=== PATIENT | female | born 1955 | race Caucasian/White ===

== ENCOUNTER 2025-03-15 18:45 | Observation (INO) | payer MEDICARE, OTHER, SELFPAY ==
[2025-03-15] VITALS (9 sets, daily range): BP systolic 159–186; BP diastolic 77–110; BMI 28.6
--- NOTE | 2025-03-15 12:31 | ED.GENMED ---
History of Present Illness
General
Chief Complaint: Abdominal Symptoms
Source: patient
Exam Limitations: none
Time Seen by Provider: 03/15/25 11:48
Nursing documentation reviewed up to this point in time: agreed with
History of Present Illness
History of Present Illness:
70-year-old female with history of hypertension, hyperlipidemia, bipolar disorder, schizophrenia, here after her sister dropped her off to the ER because the patient does not have a place to live. Patient has been homeless for several years. She
lost her house years ago and has been bouncing around, occasionally staying with one of her sisters and most recently in the last month was at a extended stay hotel. Her money ran out so she is no longer able to stay there. Today after she was
evicted from the hotel her sister took her to [facility] because the patient claims she was told if she told them that she was homeless that they would give her a place to live. Patient
admitted to the staff there and that she was not suicidal and so they gave her outpatient resources and did not do a formal consultation. I spoke with the person friends to confirm this
Then the patient's sister dropped her off in the ER and apparently told this patient to tell us that she was suicidal and she had medical problems so that she could get a place to stay. Patient's sister is not here with her. Patient says that her
only medical complaint is constipation which is chronic. She thinks she has not had a bowel movement in 2 weeks. She is not taking anything [id number] right now but she had been previously taking MiraLAX
She has no abdominal pain and is able to eat close no vomiting, no fevers or chills.
Patient denies suicidal thoughts to me. She is depressed about not having a place to stay and does not feel like she can call her family.
Past History
Past History
ED Past Medical History: CVA (Previous TIAs), HTN, Hypercholesterolemia and Psychiatric (bipolar,. schizo, a/d)
ED Past Surgical History: Orthopedic (Shon hip replacements, Spinal fusion, Left foot surgery, Left knee replacement) and Other (Abd Lipectomy)
Social History
Tobacco: Non-smoker
Alcohol: None
Personal:
Living: alone
Employment: Disabled
Family History
Family History: Other (Noncontributory)
Review of Systems
Review of Systems
Allergies reviewed?: Yes
All Other Systems: Not applicable
Phy Exam
Physical Exam
Physical Exam:
GENERAL: Alert , in no apparent distress
EYE: pupils equal and reactive
NECK: Supple
ENT: o/p clr, mmm.
CARDIAC: Regular rate and rhythm .
LUNGS: Clear breath sounds bilaterally, no acute respiratory distress, no wheezes/rales/rhonchi
ABDOMEN: Soft, soft, without focal tenderness, no r/g, no cvat, normal bowel sounds
NEUROLOGICAL: Alert and oriented, no focal neuro deficits
SKIN: Warm and dry, skin intact.
MUSCULOSKELETAL: No edema, well perfused. neg rolando's sign
PSYCH: Normal and appropriate interaction. flat affect
Course
Orders/Labs/Results
Orders:
Orders
03/15/25 Breakfast
Regular
At Your Request: Full Participation
03/15/25 11:51
Case Management Consult ONCE
Case Management Consult: Other
Requested By:: NURSING
Comment:
Obstruct Series W/PA Chest [CR Obstruct Series W/pa Chest] Urgent
Comment:
Reason For Exam: constipation
03/15/25 13:57
Magnesium Citrate [Citroma] 300 ml PO ONCE ONE
03/15/25 16:33
Physical Therapy Consult [Pt Eval And Treat] Urgent
Activity Level: Ambulate
03/15/25 16:35
Basic Metabolic Panel Urgent
Complete Blood Count/With Diff Urgent
03/15/25 17:10
NT-proBNP Urgent
03/15/25 18:28
Potassium Chloride 10% Elixir [KCl Elixir] 40 meq PO NOW STA
03/15/25 18:29
Admit/Transfer Patient As Directed
Co-Sign Provider:
Level of Care: Observation services
Assign to:: [facility]
Physician / Group: spencer
Diagnosis: homeless
03/15/25 18:30
Code Status As Directed
Resuscitation Status: Full Code
PRN Pain Medication Management As Directed
May give lesser potent ordered pain med per pt: Yes
preference::
Protocol:: Medication orders for pain may be administered in a
manner that supports deferring to patient preference
when the pt is:
- Requesting an ordered lesser potent pain medication.
Least to most potent pain medications are defined
as: acetaminophen < NSAID < tramadol < opioids
(morphine, oxycodone, hydromorphone).
- Requesting a lesser dose of the same medication IF
ORDERED.
- Requesting a less intrusive route of administration
if both routes are prescribed by the provider (PO <
IV).
03/15/25 20:00
Docusate Sodium [Colace] 100 mg PO BID
03/15/25 20:43
Acetaminophen [Tylenol] 650 mg PO Q4HPRN PRN
Bisacodyl [Dulcolax] 10 mg RECTAL [id number] PRN
Docusate Sodium [Colace] 100 mg PO BID
Docusate W/Senna [Senokot-S] 1 tablet PO BIDPRN PRN
Oxybutynin Chloride [Ditropan] 2.5 mg PO BID
Polyethylene Glycol Powder [Miralax] 17 grams PO DAILYPRN PRN
03/15/25 20:43
OID Social Work/Psychosocial Collet Gluer Consult Routine
Activity As Directed
Activity Level: As Tolerated
Vital Signs As Directed
Frequency: Per unit guidelines
DX Deep Vein Thrombosis Video Routine
03/15/25 22:00
Polyethylene Glycol Powder [Miralax] 17 grams PO HS
Sennosides [Senokot] 8.6 mg PO HS
Trazodone [Desyrel] 150 mg PO HS
03/16/25 08:00
ARIPiprazole [Abilify] 5 mg PO DAILY
Aspirin Chewable [Low Strength Aspirin] 81 mg PO DAILY
Atorvastatin [Lipitor] 40 mg PO DAILY
Bupropion(24Hr)Extended Releas [WELLBUTRIN XL (24 hour extended release)] 300 mg PO DAILY
Clopidogrel Bisulfate [Plavix] 75 mg PO DAILY
Cyanocobalamin [Vitamin B-12] 1,000 mcg PO DAILY
Lisinopril [Zestril] 5 mg PO DAILY
Pantoprazole [Protonix] 40 mg PO DAILY
03/16/25 18:00
Enoxaparin Sodium [Lovenox] 40 mg SC QPM
Abnormal Lab Results
03/15/25
16:35
RBC 3.18 L 10^6/uL
(4.20-5.40)
Hgb 10.1 L g/dL
(12.0-16.0)
Hct 30.6 L %
(37.0-47.0)
MCH 31.8 H pg
(27.0-31.0)
Absolute Lymphs (auto) 1.0 L 10^3/uL
(1.2-3.4)
Potassium 3.4 L mmol/L
(3.5-5.1)
Chloride 111 H mmol/L
(98-107)
Glucose 100 H mg/dl
(70-99)
03/15/25 16:35
03/15/25 16:35
Vital Signs
Initial and Last Documented VS:
Initial Vital Signs
Temp Pulse Resp BP Pulse Ox
37.0 C 103 18 186/110 100
03/15/25 11:05 03/15/25 11:05 03/15/25 11:05 03/15/25 11:05 03/15/25 11:05
Last Documented Vital Signs
Temp Pulse Resp BP Pulse Ox
36.7 C 81 16 133/69 93
03/19/25 23:00 03/19/25 23:00 03/19/25 23:00 03/19/25 23:00 03/19/25 23:00
MDM/Problems Addressed
Differential Diagnosis Includes:
constipation, bowel obstruction; depression, suicidal thoughts
MDM/Problems Addressed:
70 y/o F with consitpation chronically, schizophrenia
here probably mostly for homelessness
but cmoplained of constipation, no vomiting
feels depresse dbut not SI
got evicted from her hotel this morning
medical exam unremarkable, nontendern abdomen
xray shows consitpation, no bowel obstruction
seen by case linette who called the sister who was concernd about pt being SI and needing clearance
crisis saw pt and she denied SI saying mona the rhsister told her to say she was suicidal so that she could be place d somewhere
crisis denied that pt needed inpatient
will let CM give housing resources
mag citrate for constipation
*Critical Care Note
Total Time (30-74mins, 75-104mins- exclusive of procedures): Not Applicable
ED Attending Note
-
Portions of this chart may have been created with voice recognition software.� Occasional wrong word or��sound alike� substitutions may have occurred due to the inherent limitations of voice recognition software.
Discharge Plan
Departure
Patient Disposition: Admit
Date of Disposition: 03/15/25
Time of Disposition: 18:33
Presentation/result/management discussed w/ accepting MD/DO: Hospitalist
Patient with high blood pressure during this ER visit?: Yes
Condition: Fair
Covid-19: Not Applicable
Discharge Problem:
Ambulatory dysfunction
Interventions
Interventions:
*Risk Screen - Suicide Last Done: 03/15/25 11:05
*General Assessment Last Done: 03/15/25 11:05
*Neglect/Abuse Screening Last Done: 03/15/25 11:05
*ED COVID-19 Vaccine History Last Done: 03/15/25 22:52
*Nursing Disposition Last Done: 03/15/25 20:44
QL-Vpdnfg-Wwxkjzqodc Assessment Last Done: 03/15/25 11:39
Discharge Date and Time
Discharge Date/Time: 03/15/25 20:44
--- NOTE | 2025-03-15 13:00 | CM ---
Addendum entered by Riddhi Granger RN 03/15/25 16:09:
Spoke with Sanchez Flores; she evaluated the patient who is not suicidal.
Spoke with [facility]; explained homeless patient in ED who resided in [facility]. Patient would need to access [facility] in [facility] at ph [phone], however that is not an immediate solution.
[facility] has no available beds through the weekend. The [place] [facility] is full. He has no other suggestions.
Phone call to [facility] (ph [phone]) [phone]; left message requesting callback if they can help with 1-2 nights in a motel for a homeless patient. No callback received.
Spoke with patient's sister Swati;
Met with patient; informed her CM contacted [facility] and there are no intermediate beds available in [place], and [facility] are booked through the weekend. Provided patient with phone # for [facility] in
[facility] at ph [phone]. The patient thinks her sister Claribel will help her - informed her CM has tried to reach her several times today with no response. Provided update that her sister Swati states she is unable to offer any help. Patient
does not have any money for a motel. She has no other contacts to call.
Case discussed with Dr Silva; unable to secure intermediate, hotel or other housing for patient. No response from patient's sister Claribel who patient says will assist her.
Plan TBD.
Original Note:
Patient who is homeless with Hx psychiatric disorder with family reported complaints of suicidality.
Spoke with patient's sister Swati;
the patient was residing in [facility] and was evicted from [facility] through [employer] about a month ago. The sisters were paying for her to stay in an Extended Care Hotel in [place].
They took the patient to [facility] yesterday for evaluation as patient was making statements of wanting to kill herself.
Swati feels she is actively suicidal and concerned that she needs inpatient treatment.
The patient had previously resided in [facility] and had services through [facility] until she relocated to [facility].
The patient has been to multiple inpatient psych facilities including [facility], [facility] and [facility] in [place].
Swati states that patient has Dx bipolar schizoaffective disorder.
She has been independent in ADLs and ambulation using a rollator.
She has not had other outpatient services such as home health.
Case discussed with Radha ARIAS; as family is reporting patient is suicidal suggest Crisis Team evaluation or Psych Consult.
Patient will not be eligible for [facility] assistance in [facility] as she has been residing in [facility].
Suggest Crisis team can offer disposition to homeless intermediate if patient is cleared to leave.
Plan advise referral to Crisis/Psych due to reports of suicidality.
[2025-03-15] MEDS: CITROMA 300 ML PO (15:11)
[2025-03-15 16:55] LABS: % Basophils 0.6 % (0-2); % Eosinophils 2.1 % (0-6); % Immature Granulocytes 0.2 % (0-0.5); % Lymphocytes 20.8 % (20.5-51.1); % Monocytes 8.5 % (1.7-9.3); % Neutrophils 67.8 % (42.2-75.2); Absolute Eosinophils 0.1 10^3/uL (0-0.7); Absolute Monocytes 0.4 10^3/uL (0.1-0.6); Absolute Neutrophils 3.3 10^3/uL (1.4-6.5); Hematocrit 30.6 % (37.0-47.0); Hemoglobin 10.1 g/dL (12.0-16.0); Mean Corpuscular Hgb 31.8 pg (27.0-31.0); Mean Corpuscular Volume 96.2 fL (81.0-99.0); Nucleated Red Blood Cells % 0 %; Platelet Count 191 10^3/uL (130-400); Red Blood Cell Count 3.18 10^6/uL (4.20-5.40); Red Cell Dist. Width 13.2 % (11.5-14.5); White Blood Cell Count 4.8 10^3/uL (4.8-10.8)
[2025-03-15 16:59] LABS: Blood Urea Nitrogen 14 mg/dl (7-17); Carbon Dioxide 29 mmol/L (22-30); Chloride 111 mmol/L (98-107); Glucose 100 mg/dl (70-99); Potassium 3.4 mmol/L (3.5-5.1); Sodium 143 mmol/L (135-145); eGFR > 60.00
[2025-03-15 17:47] LABS: NT-proBNP 326 pg/ml
--- NOTE | 2025-03-15 18:03 | HPS.HSE ---
Family Physician
-
Family Physician: Jenelle De La Garza MD
Chief Complaint
-
headache
History of Present Illness
70-year-old female with history of hypertension, hyperlipidemia, bipolar disorder, schizophrenia, here after her sister dropped her off to the ER because the patient does not have a place to live. Patient has been homeless for several years. She
lost her house years ago and has been bouncing around, occasionally staying with one of her sisters and most recently in the last month was at a extended stay hotel. Her money ran out so she is no longer able to stay there. her sister dropped her
here and told her to say that she was suicidal, then they will admit her and place her at psych facility. patient is complaining of headache. she is in tears. denied dizzy or syncope.denied fever, chills,chest pain, sob.denied abdominal pain,n,v,d.
denied dysuria or hematuria. she is not suicidal. she denied any plans to kill her.
admitting for further management.
Medical History
Past Medical History
Past Medical History: Reports Other
Additional Past Medical History:
Constipation and colonic polyps, degenerative joint disease, hypertension, diarrhea, depression
Past Surgical History: Reports Other
Additional Past Surgical History:
Back surgery, hip replacement, left knee surgery
Social History
Tobacco: Non-smoker
Alcohol: None
Drug: None
Personal: Single
Living: Homeless
Family History
Family History: Not pertinent
Allergies / Home Medications
Allergies reflects when Allergies were last updated in [facility].
Home Medications with original date entered in [facility]
Allergy/Medication List:
Allergies
Allergy/AdvReac Type Severity Reaction Status Date / Time
codeine Allergy Unknown Verified 03/15/25 11:10
Home Medications
amlodipine 5 mg tablet 5 mg PO DAILY 10/27/22
aspirin 81 mg chewable tablet 81 mg PO DAILY 10/27/22
bupropion HCl 300 mg 24 hr tablet, extended release (Wellbutrin XL) 300 mg PO DAILY 10/27/22
docusate sodium 100 mg capsule 100 mg PO BID 10/27/22
lubiprostone 24 mcg capsule 24 mcg PO BID@0800,1700 10/27/22
omeprazole 40 mg capsule,delayed release 40 mg PO DAILY 10/27/22
risperidone 3 mg tablet (Risperdal) 3 mg PO HS 10/27/22
simvastatin 20 mg tablet 20 mg PO QPM 10/27/22
trazodone 100 mg tablet 100 mg PO HS 10/27/22
venlafaxine 37.5 mg capsule,extended release 24 hr 37.5 mg PO DAILY 10/27/22
venlafaxine 75 mg capsule,extended release 24 hr 75 mg PO DAILY 10/27/22
clopidogrel 75 mg tablet 75 mg PO DAILY #21 tabs 05/03/23
quetiapine 100 mg tablet 100 mg PO HS #0 tabs 05/03/23
Review of Systems
-
Constitutional: Reports No Symptoms
EENT: Reports No Symptoms
Respiratory: Reports No Symptoms
Cardiac: Reports No Symptoms
Abdomen/GI: Reports No Symptoms
: Reports No Symptoms
Musculoskeletal: Reports No Symptoms
Skin: Reports No Symptoms
Neurological: Reports Headache
Endocrine: Reports No Symptoms
Hematologic/Lymphatic: Reports No Symptoms
Psych: Reports No Symptoms
Physical Exam
Vital Signs
Vital Signs
Temp Pulse Resp BP Pulse Ox
98.6 F 86 14 180/96 99
03/15/25 11:05 03/15/25 16:38 03/15/25 16:38 03/15/25 16:38 03/15/25 16:38
Physical Exam
General: Well Developed, Well Nourished and No Apparent Distress
HEENT: NormoCephalic, Moist mucous membranes and Atraumatic
Respiratory: Clear
Cardiac: S1/S2 and Regular Rhythm; No Murmur or Rub
GI: Soft, Non Tender, Non Distended and Normal Bowel Sounds; No Organomegaly
Rectal: Deferred by Provider
Musculoskeletal: No Clubbing, No Cyanosis and No Edema
Skin: No Rash
Neuro: AO x 3 and Nonfocal/grossly intact
Psych: Calm
Laboratory Results
-
03/15/25 16:35
03/15/25 16:35
Data Reviewed
-
Diagnostic Radiology: Report Reviewed by me
Lab Data: Labs Reviewed by me
Impression/Plan
-
# Homeless
-need placement
-sw consulted for placement.
# Anemia likely chronic
- Hemoglobin 10.0
- No active bleeding
- Continue to monitor
# Hypokalemia likely from poor oral intake
- K3.4
- Supplemented with oral potassium
# Hypertension
- Blood pressure elevated in ER.
-lisinopril continued with hold parameter
#hxt of TIA
-asa, Plavix and statin continued
# Constipation
- Chest abdomen x-ray with impression of Moderate amount of gas and stool within the colon.
-Colace, senna and miralax added
#Depression/schizophrenia/Mood Disorder
-will continue the home medication.
#GERD- Stable.� Continue PPI.
#DVT Prophylaxis
-Lovenox
#Code Status
full code
[2025-03-15] MEDS: KCL ELIXIR 40 MEQ PO (18:56)
--- NOTE | 2025-03-15 18:58 | W.PN.UPDATE ---
Update Note
Progress Note Update
This is an addendum to the H&P written by Fabi Walls on 03/15/2025. Patient seen and examined independently with ASSISTANT HVAC MECHANIC.
70-year-old female past medical history of hypertension, hyperlipidemia, bipolar disorder, schizophrenia, dropped off here by her sister because patient does not have a home. She was told by sister to say she was suicidal so she could get housing.
She has been living in a hotel but ran out of money. Patient not suicidal currently. Only complaint is headache and constipation without bowel movement for a week. She was crying earlier.
Vital signs show blood pressure 180s. Labs show potassium 3.4.
Headache likely secondary to hypertension. As needed hydralazine for elevated blood pressure. May need to uptitrate lisinopril. MiraLAX for constipation. Replete potassium.
Social work and crisis evaluated and cannot place. PT evaluated and recommended rehab. Psychiatry consulted.
[2025-03-15] MEDS: APRESOLINE 10 MG IV (22:21)
[2025-03-15] MEDS: DITROPAN 2.5 MG PO (22:23)
[2025-03-15] MEDS: COLACE 100 MG PO (22:23)
[2025-03-15] MEDS: SENOKOT 8.6 MG PO (22:23)
[2025-03-15] MEDS: DESYREL 150 MG PO (22:23)
[2025-03-16 02:00] VITALS: BP 146/83
--- NOTE | 2025-03-16 02:29 | PTCARENOTE ---
Pt noted with edema around L eye lid. Was not present on admission a few hours ago. Cold compress applied, SENIOR OPERATOR notified.
[2025-03-16 07:00] VITALS: BP 152/83
[2025-03-16] MEDS: PLAVIX 75 MG PO (08:42)
[2025-03-16] MEDS: ABILIFY 5 MG PO (08:42)
[2025-03-16] MEDS: PROTONIX 40 MG PO (08:42)
[2025-03-16] MEDS: VITAMIN B-12 1000 MCG PO (08:42)
[2025-03-16] MEDS: DITROPAN 2.5 MG PO ×2 (08:42→21:22)
[2025-03-16] MEDS: LOW STRENGTH ASPIRIN 81 MG PO (08:42)
[2025-03-16] MEDS: COLACE 100 MG PO ×2 (08:42→21:22)
[2025-03-16] MEDS: LIPITOR 40 MG PO (08:43)
[2025-03-16] MEDS: WELLBUTRIN XL (24 hour extended release) 300 MG PO (08:44)
[2025-03-16] MEDS: ZESTRIL 5 MG PO (08:44)
--- NOTE | 2025-03-16 11:29 | W.PN.HOSP.TC ---
Today's Communication/Plan
-
Ongoing disposition efforts
Assessment / Plan
Assessment / Plan
# Homeless
-need placement
-sw consulted for placement.
# Anemia likely chronic
- Hemoglobin 10.0
- No active bleeding
- Continue to monitor
# Hypokalemia likely from poor oral intake
- K3.4
- Supplemented with oral potassium-repeat BMP
# Hypertension
- Blood pressure elevated in ER.
-lisinopril continued with hold parameter
- Undergo
#hxt of TIA
-asa and statin continued. No indication of Plavix beyond 21 days postoperative. No other indication noted for Plavix.
# Constipation
- Chest abdomen x-ray with impression of Moderate amount of gas and stool within the colon.
-Colace, senna and miralax added
#Depression/schizophrenia/Mood Disorder
-will continue the home medication.
#GERD- Stable.� Continue PPI.
#DVT Prophylaxis
-Lovenox
#Code Status
full code
Anticipated Discharge: 24 - 48 hours
Subjective/Interval History
-
Date of Service: March 16, 2025
Voicing no new specific complaints.
Admitted due to homeless situation and needing placement.
Constipation is one of her symptoms. She is hoping that now she had breakfast she might have a bowel movement. She was taking Colace at home.
On further questioning about the use of aspirin and Plavix she has no idea why she she is on both of them. Looking back at medical records it was initiated in summer 2022 admission for TIA. There was recommendation to continue for 21 days and
discontinue aspirin.
Denies any strokes or TIAs after that admission. Denies any vascular stents placed after that admission.
Objective Data
-
Vital Signs:
Vital Signs
Temp Pulse Resp BP Pulse Ox
99.0 F 84 18 152/83 94
03/16/25 07:00 03/16/25 08:44 03/16/25 07:00 03/16/25 08:44 03/16/25 07:00
I&O
03/15/25 03/16/25 03/17/25
06:59 06:59 06:59
Intake Total 240 / 240
Balance 240 / 240
Review of Systems
-
Constitutional: Denies Fever
EENT: Denies Sore Throat
Respiratory: Denies Cough or Trouble Breathing
Cardiac: Denies Chest Pain
Abdomen/GI: Denies Abdominal Pain, Nausea or Vomiting
Neuro: Denies Dizzy
Physical Exam
-
General: No Apparent Distress
HEENT: Moist Mucous Membranes
Respiratory: Non Labored Respirations; Negative Accessory Resp Muscle Use
Cardiac: Regular Rhythm and S1/S2
GI: Soft and Nontender
Neuro: AO x 3
Psych: Calm
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
[2025-03-16 15:00] VITALS: BP 170/95
[2025-03-16] MEDS: LOVENOX 40 MG SC (17:12)
[2025-03-16] MEDS: DESYREL 150 MG PO (21:22)
[2025-03-16] MEDS: DESENEX/MITRAZOL/ZEASORB 1 APPLIC TOPICAL (21:22)
[2025-03-16] MEDS: SENOKOT PO (21:24)
[2025-03-16 23:05] VITALS: BP 154/85
[2025-03-17 05:29] LABS: Hematocrit 30.7 % (37.0-47.0); Hemoglobin 10.2 g/dL (12.0-16.0); Mean Corp Hgb Conc. 33.2 g/dL (33.0-37.0); Mean Corpuscular Hgb 32.1 pg (27.0-31.0); Mean Corpuscular Volume 96.5 fL (81.0-99.0); Mean Platelet Volume 9.9 fL (7.4-10.4); Platelet Count 182 10^3/uL (130-400); Red Blood Cell Count 3.18 10^6/uL (4.20-5.40); Red Cell Dist. Width 13.1 % (11.5-14.5); White Blood Cell Count 4.8 10^3/uL (4.8-10.8)
[2025-03-17 05:52] LABS: ALT (SGPT) 33 U/L (0-35); AST (SGOT) 28 U/L (14-36); Albumin 3.6 g/dl (3.5-5.0); Alkaline Phosphatase 96 U/L (38-126); Blood Urea Nitrogen 19 mg/dl (7-17); Calcium 9.4 mg/dl (8.4-10.2); Carbon Dioxide 26 mmol/L (22-30); Chloride 112 mmol/L (98-107); Estimated Creatinine Clearance 64 ml/min; Glucose 112 mg/dl (70-99); Iron 57 ug/dl (37-170); Sodium 141 mmol/L (135-145); Total Bilirubin 0.4 mg/dl (0.2-1.3); Total Protein 5.7 g/dl (6.3-8.2); eGFR > 60.00
[2025-03-17 06:02] LABS: Percent Saturation 21 % (20-50); Total Iron Binding Capacity 268 ug/dl (265-497)
[2025-03-17 06:23] LABS: Ferritin 16.5 ng/ml (11.1-264.0)
[2025-03-17 07:20] VITALS: BP 164/89
[2025-03-17] MEDS: LIPITOR 40 MG PO (08:42)
[2025-03-17] MEDS: PROTONIX 40 MG PO (08:42)
[2025-03-17] MEDS: DITROPAN 2.5 MG PO ×2 (08:42→21:04)
[2025-03-17] MEDS: COLACE 100 MG PO ×2 (08:50→21:04)
[2025-03-17] MEDS: VITAMIN B-12 1000 MCG PO (08:50)
[2025-03-17] MEDS: ABILIFY 5 MG PO (08:55)
[2025-03-17] MEDS: LOW STRENGTH ASPIRIN 81 MG PO (08:55)
[2025-03-17] MEDS: WELLBUTRIN XL (24 hour extended release) 300 MG PO (09:00)
[2025-03-17] MEDS: DESENEX/MITRAZOL/ZEASORB 1 APPLIC TOPICAL ×2 (09:00→21:04)
[2025-03-17] MEDS: ZESTRIL 5 MG PO ×2 (09:00→15:28)
--- NOTE | 2025-03-17 13:55 | W.PN.HOSP.TC ---
Today's Communication/Plan
-
Ongoing disposition efforts
Assessment / Plan
Assessment / Plan
# Homeless
-need placement
-sw consulted for placement.
# Anemia likely chronic
- Hemoglobin around 10.0 and stable
- Continue to monitor
# Hypertension
- Not at goal. On a minimal dose of lisinopril which will be increased today.
#hxt of TIA
-asa and statin continued. No indication of Plavix beyond 21 days postoperative. No other indication noted for Plavix.
# Constipation
- Chest abdomen x-ray with impression of Moderate amount of gas and stool within the colon.
-Colace, senna and miralax added
- Resolved
#Depression/schizophrenia/Mood Disorder
-will continue the home medication.
-Psychiatry input noted-no active psychiatry treatments indicated. Cleared for discharge from psychiatry standpoint as well.
#GERD- Stable.� Continue PPI.
#DVT Prophylaxis
-Lovenox
#Code Status
full code
Medically stable for DC
Anticipated Discharge: Within 24 hours
Subjective/Interval History
-
Date of Service: March 17, 2025
Voices no specific complaints
Had BM
No suicidal
Objective Data
-
Labs:
Laboratory Results
03/17/25
04:56
WBC 4.8
Hgb 10.2 L
Hct 30.7 L
Plt Count 182
Sodium 141
Potassium 4.0
Chloride 112 H
Carbon Dioxide 26
BUN 19 H
Creatinine 0.7
Glucose 112 H
Calcium 9.4
Total Bilirubin 0.4
AST 28
ALT 33
Alkaline Phosphatase 96
Vital Signs:
Vital Signs
Temp Pulse Resp BP Pulse Ox
98.5 F 92 16 164/89 95
03/17/25 07:20 03/17/25 07:20 03/17/25 07:20 03/17/25 07:20 03/17/25 07:20
I&O
03/16/25 03/17/25 03/18/25
06:59 06:59 06:59
Intake Total 240 / 240 1200 / 1200
Balance 240 / 240 1200 / 1200
Physical Exam
-
Respiratory: Non Labored Respirations; Negative Accessory Resp Muscle Use
Cardiac: Regular Rhythm and S1/S2
GI: Soft
Neuro: AO x 3; Negative Tremors
Psych: Calm; Negative Confused
Data Reviewed
-
Labs: Labs Reviewed by me
[2025-03-17 15:10] VITALS: BP 165/92
[2025-03-17] MEDS: LOVENOX SC (19:30)
--- NOTE | 2025-03-17 19:30 | PTCARENOTE ---
Patient upset stating that she is afraid of rolling out of bed, and that she felt she was going to fall because 'something was sticking out of her bed' when she got back from the bathroom. Patient reassured that the bed is the way it was, and unable
to determine what she was referring to. Patient is getting agitated with nursing staff. Patient agreed to ringing the call cardona so nursing can assist her with the bed to go to the bathroom to assure she will not fall. Patient with flat affect.
[2025-03-17] MEDS: DESYREL 150 MG PO (21:04)
[2025-03-17] MEDS: SENOKOT PO (21:04)
[2025-03-17 21:11] VITALS: BP 138/81
[2025-03-17 23:41] VITALS: BP 134/73
[2025-03-18 07:43] VITALS: BP 155/97
[2025-03-18] MEDS: LIPITOR 40 MG PO (09:20)
[2025-03-18] MEDS: LOW STRENGTH ASPIRIN 81 MG PO (09:20)
[2025-03-18] MEDS: PROTONIX 40 MG PO (09:20)
[2025-03-18] MEDS: ABILIFY 5 MG PO (09:20)
[2025-03-18] MEDS: VITAMIN B-12 1000 MCG PO (09:20)
[2025-03-18] MEDS: DITROPAN 2.5 MG PO ×2 (09:20→22:02)
[2025-03-18] MEDS: WELLBUTRIN XL (24 hour extended release) 300 MG PO (09:21)
[2025-03-18] MEDS: COLACE 100 MG PO ×2 (09:21→22:09)
[2025-03-18] MEDS: ZESTRIL 10 MG PO (09:21)
[2025-03-18] MEDS: DESENEX/MITRAZOL/ZEASORB 1 APPLIC TOPICAL ×2 (09:23→22:06)
--- NOTE | 2025-03-18 13:56 | W.PN.HOSP.TC ---
Today's Communication/Plan
-
Assessment / Plan
Assessment / Plan
General: No Apparent Distress, Comfortable and Conversant
HEENT: NormoCephalic, Moist mucous membranes, Atraumatic
Respiratory: Clear and Non Labored Respirations
Cardiac: S1/S2 and Regular Rhythm; No Rub or Gallop
GI: Soft, Non Tender, Non Distended and Normal Bowel Sounds
Musculoskeletal: No Edema, no deformity
: NO Brennan
Neuro: Awake, Alert, Nonfocal/grossly intact
Psych: Calm and cooperative
# Homeless
-need placement
-sw following for placement.
# Anemia likely chronic
- Hemoglobin around 10.0 and stable
- Continue to monitor
# Hypertension
- Improved but not yet optimized
- Continue lisinopril 10 mg daily, was on 5 mg daily at home
#hxt of TIA
-asa and statin continued. No indication of Plavix beyond 21 days. No other indication noted for Plavix and so it has been discontinued.
# Constipation
- Chest abdomen x-ray with impression of Moderate amount of gas and stool within the colon.
-Colace, senna and miralax added
- Resolved
#Depression/schizophrenia/Mood Disorder
-will continue the home medication.
-Psychiatry input noted-no active psychiatry treatments indicated. Cleared for discharge from psychiatry standpoint as well.
#GERD- Stable.� Continue PPI.
#DVT Prophylaxis
-Lovenox
#Code Status
full code
Medically stable for DC
Anticipated Discharge: 24 - 48 hours
Subjective/Interval History
-
Date of Service: March 18, 2025
Patient was seen and examined at bedside this morning. Medically stable. Awaiting placement.
Objective Data
-
Vital Signs:
Vital Signs
Temp Pulse Resp BP Pulse Ox
97.5 F 85 17 155/97 97
05/19/25 07:43 03/18/25 07:43 03/18/25 07:43 03/18/25 07:43 03/18/25 07:43
I&O
03/17/25 03/18/25 03/19/25
06:59 06:59 06:59
Intake Total 1200 / 1200 1320 / 1320
Balance 1200 / 1200 1320 / 1320
Review of Systems
-
History Source: Patient
All other systems: Reviewed and negative
Physical Exam
-
General: No Apparent Distress
[2025-03-18 15:30] VITALS: BP 178/91
--- NOTE | 2025-03-18 15:40 | CM ---
CM following to find available housing resources for Leeann in [facility]. Call to [facility] . I left a voicemail for Jovita, requesting a call to the CM department when she is available to discuss pt's needs.
Plan: Follow up with [facility] for possible housing assistance.
[2025-03-18 16:56] VITALS: BP 178/91; PULSE 75; O2SAT 99
[2025-03-18] MEDS: LOVENOX 40 MG SC (17:29)
[2025-03-18] MEDS: SENOKOT PO (22:01)
[2025-03-18] MEDS: COLACE PO (22:01)
[2025-03-18] MEDS: DESYREL 150 MG PO (22:04)
[2025-03-18 23:00] VITALS: BP 163/93
[2025-03-19 07:30] VITALS: BP 154/86
[2025-03-19] MEDS: DITROPAN 2.5 MG PO ×2 (08:12→21:20)
[2025-03-19] MEDS: WELLBUTRIN XL (24 hour extended release) 300 MG PO (08:12)
[2025-03-19] MEDS: ZESTRIL 10 MG PO (08:12)
[2025-03-19] MEDS: ABILIFY 5 MG PO (08:13)
[2025-03-19] MEDS: PROTONIX 40 MG PO (08:13)
[2025-03-19] MEDS: LOW STRENGTH ASPIRIN 81 MG PO (08:13)
[2025-03-19] MEDS: VITAMIN B-12 1000 MCG PO (08:13)
[2025-03-19] MEDS: LIPITOR 40 MG PO (08:13)
[2025-03-19] MEDS: DESENEX/MITRAZOL/ZEASORB 1 APPLIC TOPICAL ×2 (08:13→21:18)
[2025-03-19] MEDS: COLACE 100 MG PO ×2 (08:13→21:20)
[2025-03-19] MEDS: SENOKOT-S 1 TABLET PO (08:22)
--- NOTE | 2025-03-19 12:14 | CM ---
Addendum entered by Tila Simmons 03/19/25 16:30:
patient agreeable to SNF; preference is [facility]
PASRR Level 2 started
[employer] ([facility]), Vani Faye, ; other Sha contact, Agusto Gardner # [phone]
Original Note:
PT recommends SNF; multiple SNF referrals sent via [facility]
Left voice mail for both sisters; requested that one of them contact Case Management to assist with PASRR completion
--- NOTE | 2025-03-19 14:35 | W.PN.HOSP.TC ---
Today's Communication/Plan
-
Assessment / Plan
Assessment / Plan
General: No Apparent Distress, Comfortable and Conversant
HEENT: NormoCephalic, Moist mucous membranes, Atraumatic
Respiratory: Clear and Non Labored Respirations
Cardiac: S1/S2 and Regular Rhythm; No Rub or Gallop
GI: Soft, Non Tender, Non Distended and Normal Bowel Sounds
Musculoskeletal: No Edema, no deformity
: NO Brennan
Neuro: Awake, Alert, Nonfocal/grossly intact
Psych: Calm and cooperative
# Homeless
-need placement
-sw following for placement.
# Anemia likely chronic
- Hemoglobin around 10.0 and stable
- Continue to monitor
# Hypertension
- Improved but not yet optimized
- Continue lisinopril 10 mg daily, was on 5 mg daily at home
#hxt of TIA
-asa and statin continued. No indication of Plavix beyond 21 days. No other indication noted for Plavix and so it has been discontinued.
# Constipation
- Chest abdomen x-ray with impression of Moderate amount of gas and stool within the colon.
-Colace, senna and miralax added
- Resolved
#Depression/schizophrenia/Mood Disorder
-will continue the home medication.
-Psychiatry input noted-no active psychiatry treatments indicated. Cleared for discharge from psychiatry standpoint as well.
#GERD- Stable.� Continue PPI.
#DVT Prophylaxis
-Lovenox
#Code Status
full code
Medically stable for DC
Anticipated Discharge: 24 - 48 hours
Subjective/Interval History
-
Date of Service: March 19, 2025
Patient was seen and examined at bedside this morning. No acute events overnight and no current complaints.
Objective Data
-
Vital Signs:
Vital Signs
Temp Pulse Resp BP Pulse Ox
98.1 F 89 16 154/86 96
03/19/25 07:30 03/19/25 07:30 03/19/25 07:30 03/19/25 07:30 03/19/25 07:30
I&O
03/18/25 03/19/25 03/20/25
06:59 06:59 06:59
Intake Total 1320 / 1320 480 / 480
Balance 1320 / 1320 480 / 480
Review of Systems
-
History Source: Patient
All other systems: Reviewed and negative
Physical Exam
-
General: No Apparent Distress
[2025-03-19 16:00] VITALS: BP 152/83
[2025-03-19] MEDS: LOVENOX SC (19:51)
[2025-03-19] MEDS: DESYREL 150 MG PO (21:21)
[2025-03-19] MEDS: SENOKOT 8.6 MG PO (22:18)
[2025-03-19 23:00] VITALS: BP 133/69
[2025-03-20 07:25] VITALS: BP 124/67
--- NOTE | 2025-03-20 08:27 | CM ---
Level 2 PASRR faxed to [facility] to fax# [phone]
[2025-03-20] MEDS: LIPITOR 40 MG PO (08:38)
[2025-03-20] MEDS: WELLBUTRIN XL (24 hour extended release) 300 MG PO (08:39)
[2025-03-20] MEDS: ZESTRIL 10 MG PO (08:39)
[2025-03-20] MEDS: DITROPAN 2.5 MG PO ×2 (08:39→21:27)
[2025-03-20] MEDS: VITAMIN B-12 1000 MCG PO (08:39)
[2025-03-20] MEDS: ABILIFY 5 MG PO (08:40)
[2025-03-20] MEDS: PROTONIX 40 MG PO (08:40)
[2025-03-20] MEDS: LOW STRENGTH ASPIRIN 81 MG PO (08:40)
[2025-03-20] MEDS: DESENEX/MITRAZOL/ZEASORB 1 APPLIC TOPICAL ×2 (08:41→21:23)
[2025-03-20] MEDS: COLACE 100 MG PO ×2 (08:43→21:28)
--- NOTE | 2025-03-20 10:30 | CM ---
Addendum entered by Rosita Mirza 03/20/25 15:04:
[facility] Level 2 Assessment was completed by Rinku Munroe today. He did not interact with CM, but contacted CM office via phone and advised that the determination on the assessment should be completed within 2 days.
Rinku Mcpherson [employer] P[employer]asing Agent
Addendum entered by Rosita Mirza 03/20/25 12:49:
Call placed to [facility] to follow up regarding Level 2 Assessment for today. CM spoke with electronic device repairer who was not able to assist; transferred to voicemail and left a message, requesting return call.
Original Note:
Rinku Mcpherson, [employer] Purchasing Agent, will be out to evaluate Leeann today at 11:00am for Level 2 PASRR.
[2025-03-20 11:55] VITALS: BP 124/67; PULSE 82; O2SAT 97
--- NOTE | 2025-03-20 14:29 | W.PN.HOSP.TC ---
Today's Communication/Plan
-
Assessment / Plan
Assessment / Plan
General: No Apparent Distress, Comfortable and Conversant
HEENT: NormoCephalic, Moist mucous membranes, Atraumatic
Respiratory: Clear and Non Labored Respirations
Cardiac: S1/S2 and Regular Rhythm; No Rub or Gallop
GI: Soft, Non Tender, Non Distended and Normal Bowel Sounds
Musculoskeletal: No Edema, no deformity
: NO Brennan
Neuro: Awake, Alert, Nonfocal/grossly intact
Psych: Calm and cooperative
# Homeless
-need placement
-sw following for placement.
# Anemia likely chronic
- Hemoglobin around 10.0 and stable
- Continue to monitor
# Hypertension
- Currently well-controlled
- Continue lisinopril 10 mg daily, was on 5 mg daily at home
#hxt of TIA
-asa and statin continued. No indication of Plavix beyond 21 days. No other indication noted for Plavix and so it has been discontinued.
# Constipation
- Chest abdomen x-ray with impression of Moderate amount of gas and stool within the colon.
-Colace, senna and miralax added
- Resolved
#Depression/schizophrenia/Mood Disorder
-will continue the home medication.
-Psychiatry input noted-no active psychiatry treatments indicated. Cleared for discharge from psychiatry standpoint as well.
#GERD- Stable.� Continue PPI.
#DVT Prophylaxis
-Lovenox
#Code Status
full code
Medically stable for DC
Anticipated Discharge: 24 - 48 hours
Subjective/Interval History
-
Date of Service: March 20, 2025
Patient was seen and examined at bedside this morning. Awaiting placement. Case management following.
Objective Data
-
Vital Signs:
Vital Signs
Temp Pulse Resp BP Pulse Ox
97.9 F 82 16 124/67 97
05/21/25 07:25 03/20/25 07:25 03/20/25 07:25 03/20/25 08:39 03/20/25 07:25
I&O
03/19/25 03/20/25 03/21/25
06:59 06:59 06:59
Intake Total 480 / 480 1380 / 1380
Balance 480 / 480 1380 / 1380
Review of Systems
-
History Source: Patient
All other systems: Reviewed and negative
Physical Exam
-
General: No Apparent Distress
[2025-03-20 15:35] VITALS: BP 138/85
[2025-03-20] MEDS: LOVENOX 40 MG SC (16:14)
[2025-03-20] MEDS: SENOKOT PO (21:27)
[2025-03-20] MEDS: DESYREL 150 MG PO (21:38)
[2025-03-20 23:42] VITALS: BP 125/72
[2025-03-21 07:52] VITALS: BP 138/70
[2025-03-21] MEDS: ABILIFY 5 MG PO (08:33)
[2025-03-21] MEDS: PROTONIX 40 MG PO (08:33)
[2025-03-21] MEDS: WELLBUTRIN XL (24 hour extended release) 300 MG PO (08:33)
[2025-03-21] MEDS: DITROPAN 2.5 MG PO ×2 (08:34→22:11)
[2025-03-21] MEDS: ZESTRIL 10 MG PO (08:34)
[2025-03-21] MEDS: LIPITOR 40 MG PO (08:34)
[2025-03-21] MEDS: DESENEX/MITRAZOL/ZEASORB 1 APPLIC TOPICAL ×2 (08:35→22:09)
[2025-03-21] MEDS: LOW STRENGTH ASPIRIN 81 MG PO (08:35)
[2025-03-21] MEDS: COLACE 100 MG PO ×2 (08:35→22:10)
[2025-03-21] MEDS: VITAMIN B-12 1000 MCG PO (08:35)
--- NOTE | 2025-03-21 12:28 | PTCARENOTE ---
verbal report provided to Lucie WAKEFIELD.
--- NOTE | 2025-03-21 12:58 | W.PN.HOSP.TC ---
Today's Communication/Plan
-
Assessment / Plan
Assessment / Plan
General: No Apparent Distress, Comfortable and Conversant
HEENT: NormoCephalic, Moist mucous membranes, Atraumatic
Respiratory: Clear and Non Labored Respirations
Cardiac: S1/S2 and Regular Rhythm; No Rub or Gallop
GI: Soft, Non Tender, Non Distended and Normal Bowel Sounds
Musculoskeletal: No Edema, no deformity
: NO Brennan
Neuro: Awake, Alert, Nonfocal/grossly intact
Psych: Calm and cooperative
# Homeless
-need placement
-sw following for placement.
# Anemia likely chronic
- Hemoglobin around 10.0 and stable
- Continue to monitor
# Hypertension
- Currently well-controlled
- Continue lisinopril 10 mg daily, was on 5 mg daily at home
#hxt of TIA
-asa and statin continued. No indication of Plavix beyond 21 days. No other indication noted for Plavix and so it has been discontinued.
# Constipation
- Chest abdomen x-ray with impression of Moderate amount of gas and stool within the colon.
-Colace, senna and miralax added
- Resolved
#Depression/schizophrenia/Mood Disorder
-will continue the home medication.
-Psychiatry input noted-no active psychiatry treatments indicated. Cleared for discharge from psychiatry standpoint as well.
#GERD- Stable.� Continue PPI.
#DVT Prophylaxis
-Lovenox
#Code Status
full code
Medically stable for DC
Anticipated Discharge: 24 - 48 hours
Subjective/Interval History
-
Date of Service: March 21, 2025
Patient was seen and examined at bedside this morning. Awaiting placement.
Objective Data
-
Vital Signs:
Vital Signs
Temp Pulse Resp BP Pulse Ox
98.0 F 90 17 143/81 96
03/21/25 07:52 03/21/25 08:34 03/21/25 07:52 03/21/25 08:34 03/21/25 07:52
I&O
03/20/25 03/21/25 03/22/25
06:59 06:59 06:59
Intake Total 1380 / 1380 1280 / 1280
Balance 1380 / 1380 1280 / 1280
Review of Systems
-
History Source: Patient
All other systems: Reviewed and negative
Physical Exam
-
General: No Apparent Distress
--- NOTE | 2025-03-21 15:08 | CM ---
CM continues to follow for transfer to SNF pending Level 2 assessment and approval for transfer to SNF. [facility] in [place] has offered a bed; pending bed availability at time of discharge.
Plan: Discharge to SNF; awaiting update on Level 2 PASRR assessment from [facility].
--- NOTE | 2025-03-21 15:17 | PTCARENOTE ---
1225 Assumed care of pt. Pt in bed Awake alert oriented x 3, but forgetful. Personal items and call light within reach. All needs met.
[2025-03-21 15:23] VITALS: BP 128/74
[2025-03-21] MEDS: LOVENOX 40 MG SC (17:20)
[2025-03-21] MEDS: SENOKOT PO (22:10)
[2025-03-21] MEDS: DESYREL 150 MG PO (22:12)
[2025-03-22 00:29] VITALS: BP 157/97
[2025-03-22 06:21] LABS: Hematocrit 33.8 % (37.0-47.0); Mean Corp Hgb Conc. 32.5 g/dL (33.0-37.0); Mean Corpuscular Hgb 31.9 pg (27.0-31.0); Platelet Count 213 10^3/uL (130-400); Red Blood Cell Count 3.45 10^6/uL (4.20-5.40); White Blood Cell Count 5.4 10^3/uL (4.8-10.8)
[2025-03-22 07:56] VITALS: BP 137/87
[2025-03-22] MEDS: ZESTRIL 10 MG PO (08:38)
[2025-03-22] MEDS: LOW STRENGTH ASPIRIN 81 MG PO (08:38)
[2025-03-22] MEDS: PROTONIX 40 MG PO (08:38)
[2025-03-22] MEDS: ABILIFY 5 MG PO (08:38)
[2025-03-22] MEDS: COLACE 100 MG PO ×2 (08:38→20:07)
[2025-03-22] MEDS: LIPITOR 40 MG PO (08:38)
[2025-03-22] MEDS: VITAMIN B-12 1000 MCG PO (08:38)
[2025-03-22] MEDS: WELLBUTRIN XL (24 hour extended release) 300 MG PO (08:38)
[2025-03-22] MEDS: DESENEX/MITRAZOL/ZEASORB 1 APPLIC TOPICAL ×2 (08:39→20:08)
[2025-03-22] MEDS: DITROPAN PO (08:42)
[2025-03-22 09:25] VITALS: BP 143/78; PULSE 82
--- NOTE | 2025-03-22 15:06 | W.PN.HOSP.TC ---
Today's Communication/Plan
-
Assessment / Plan
Assessment / Plan
General: No Apparent Distress, Comfortable and Conversant
HEENT: NormoCephalic, Moist mucous membranes, Atraumatic
Respiratory: Clear and Non Labored Respirations
Cardiac: S1/S2 and Regular Rhythm; No Rub or Gallop
GI: Soft, Non Tender, Non Distended and Normal Bowel Sounds
Musculoskeletal: No Edema, no deformity
: NO Brennan
Neuro: Awake, Alert, Nonfocal/grossly intact
Psych: Calm and cooperative
# Homeless
-need placement
-sw following for placement.
- Medically stable for discharge
# Anemia likely chronic
- Hemoglobin around 10.0 and stable
- Continue to monitor
# Hypertension
- Currently well-controlled
- Continue lisinopril 10 mg daily, was on 5 mg daily at home
#hxt of TIA
-asa and statin continued. No indication of Plavix beyond 21 days. No other indication noted for Plavix and so it has been discontinued.
# Constipation
- Chest abdomen x-ray with impression of Moderate amount of gas and stool within the colon.
-Colace, senna and miralax added
- Resolved
#Depression/schizophrenia/Mood Disorder
-will continue the home medication.
-Psychiatry input noted-no active psychiatry treatments indicated. Cleared for discharge from psychiatry standpoint as well.
#GERD- Stable.� Continue PPI.
#DVT Prophylaxis
-Lovenox
#Code Status
full code
Medically stable for DC
Anticipated Discharge: 24 - 48 hours
Subjective/Interval History
-
Date of Service: March 22, 2025
Patient was seen and examined at bedside this morning. We discussed her concerns about getting her mornings back from her sister including some sea shells and fake plants. She is awaiting SNF placement.
Objective Data
-
Labs:
Laboratory Results
03/22/25
05:46
WBC 5.4
Hgb 11.0 L
Hct 33.8 L
Plt Count 213
Vital Signs:
Vital Signs
Temp Pulse Resp BP Pulse Ox
97.5 F 85 17 137/87 96
03/22/25 07:56 03/22/25 08:38 03/22/25 07:56 03/22/25 08:38 03/22/25 07:56
I&O
03/21/25 03/22/25 03/23/25
06:59 06:59 06:59
Intake Total 1280 / 1280 720 / 720
Balance 1280 / 1280 720 / 720
Review of Systems
-
History Source: Patient
All other systems: Reviewed and negative
Physical Exam
-
General: No Apparent Distress
[2025-03-22 15:22] VITALS: BP 155/88
--- NOTE | 2025-03-22 15:25 | CM ---
CM met with Leeann to provide support and update regarding placement. Level 2 PASRR still pending, may take several days to weeks for approval.
Pt has been accepted for transfer to [facility] in [place] once Level 2 assessment has been processed.
CM to continue to follow.
[2025-03-22] MEDS: LOVENOX 40 MG SC (17:22)
[2025-03-22] MEDS: DITROPAN 2.5 MG PO (20:07)
[2025-03-22] MEDS: SENOKOT PO (21:08)
[2025-03-22] MEDS: DESYREL 150 MG PO (22:00)
[2025-03-22 23:00] VITALS: BP 113/59
[2025-03-23 07:00] VITALS: BP 119/70
[2025-03-23] MEDS: PROTONIX 40 MG PO (07:34)
[2025-03-23] MEDS: LOW STRENGTH ASPIRIN 81 MG PO (07:34)
[2025-03-23] MEDS: LIPITOR 40 MG PO (07:34)
[2025-03-23] MEDS: VITAMIN B-12 1000 MCG PO (07:34)
[2025-03-23] MEDS: DESENEX/MITRAZOL/ZEASORB 1 APPLIC TOPICAL ×2 (07:34→21:25)
[2025-03-23] MEDS: COLACE 100 MG PO ×2 (07:34→21:23)
[2025-03-23] MEDS: ABILIFY 5 MG PO (07:34)
[2025-03-23] MEDS: WELLBUTRIN XL (24 hour extended release) 300 MG PO (07:34)
[2025-03-23] MEDS: ZESTRIL 10 MG PO (07:37)
[2025-03-23] MEDS: DITROPAN PO (07:37)
--- NOTE | 2025-03-23 10:25 | W.PN.HOSP.TC ---
Today's Communication/Plan
-
Assessment / Plan
Assessment / Plan
General: No Apparent Distress, Comfortable and Conversant
HEENT: NormoCephalic, Moist mucous membranes, Atraumatic
Respiratory: Clear and Non Labored Respirations
Cardiac: S1/S2 and Regular Rhythm; No Rub or Gallop
GI: Soft, Non Tender, Non Distended and Normal Bowel Sounds
Musculoskeletal: No Edema, no deformity
: NO Brennan
Neuro: Awake, Alert, Nonfocal/grossly intact
Psych: Calm and cooperative
# Homeless
-need placement
-sw following for placement.
- Medically stable for discharge
# Anemia likely chronic
- Hemoglobin around 10.0 and stable
- Continue to monitor
# Hypertension
- Currently well-controlled
- Continue lisinopril 10 mg daily, was on 5 mg daily at home
#hxt of TIA
-asa and statin continued. No indication of Plavix beyond 21 days. No other indication noted for Plavix and so it has been discontinued.
# Constipation
- Chest abdomen x-ray with impression of Moderate amount of gas and stool within the colon.
-Colace, senna and miralax added
- Resolved
#Depression/schizophrenia/Mood Disorder
-will continue the home medication.
-Psychiatry input noted-no active psychiatry treatments indicated. Cleared for discharge from psychiatry standpoint as well.
#GERD- Stable.� Continue PPI.
#DVT Prophylaxis
-Lovenox
#Code Status
full code
Medically stable for DC
Anticipated Discharge: 24 - 48 hours
Subjective/Interval History
-
Date of Service: March 23, 2025
Patient was seen and examined at bedside this morning. Feeling well. Awaiting SNF placement.
Objective Data
-
Vital Signs:
Vital Signs
Temp Pulse Resp BP Pulse Ox
97.4 F 76 16 119/70 99
03/23/25 07:00 03/23/25 07:37 03/23/25 07:00 03/23/25 07:37 03/23/25 07:00
I&O
03/22/25 03/23/25 03/24/25
06:59 06:59 06:59
Intake Total 720 / 720 690 / 690
Balance 720 / 720 690 / 690
Review of Systems
-
History Source: Patient
All other systems: Reviewed and negative
Physical Exam
-
General: No Apparent Distress
[2025-03-23 15:00] VITALS: BP 125/75
[2025-03-23] MEDS: LOVENOX 40 MG SC (17:19)
[2025-03-23] MEDS: DESYREL 150 MG PO (21:22)
[2025-03-23] MEDS: DITROPAN 2.5 MG PO (21:22)
[2025-03-23] MEDS: SENOKOT 8.6 MG PO (21:23)
[2025-03-23 23:36] VITALS: BP 127/63
[2025-03-24] MEDS: ZOFRAN 4 MG PO (05:55)
[2025-03-24 07:02] VITALS: BP 137/73
[2025-03-24] MEDS: LIPITOR 40 MG PO (07:32)
[2025-03-24] MEDS: ABILIFY 5 MG PO (07:32)
[2025-03-24] MEDS: ZESTRIL 10 MG PO (07:32)
[2025-03-24] MEDS: PROTONIX 40 MG PO (07:32)
[2025-03-24] MEDS: COLACE 100 MG PO ×2 (07:32→20:59)
[2025-03-24] MEDS: WELLBUTRIN XL (24 hour extended release) 300 MG PO (07:32)
[2025-03-24] MEDS: VITAMIN B-12 1000 MCG PO (07:33)
[2025-03-24] MEDS: LOW STRENGTH ASPIRIN 81 MG PO (07:33)
[2025-03-24] MEDS: DITROPAN PO (07:33)
[2025-03-24] MEDS: DESENEX/MITRAZOL/ZEASORB 1 APPLIC TOPICAL ×2 (07:33→21:02)
[2025-03-24 15:00] VITALS: BP 130/67
[2025-03-24] MEDS: LOVENOX 40 MG SC (17:11)
[2025-03-24] MEDS: DESYREL 150 MG PO (20:59)
[2025-03-24] MEDS: SENOKOT 8.6 MG PO (21:00)
[2025-03-24] MEDS: DITROPAN 2.5 MG PO (21:01)
[2025-03-24 23:00] VITALS: BP 150/78
[2025-03-25 07:19] VITALS: BP 128/79
[2025-03-25] MEDS: VITAMIN B-12 1000 MCG PO (08:23)
[2025-03-25] MEDS: ZESTRIL 10 MG PO (08:23)
[2025-03-25] MEDS: PROTONIX 40 MG PO (08:23)
[2025-03-25] MEDS: COLACE 100 MG PO ×2 (08:24→21:16)
[2025-03-25] MEDS: LOW STRENGTH ASPIRIN 81 MG PO (08:24)
[2025-03-25] MEDS: WELLBUTRIN XL (24 hour extended release) 300 MG PO (08:34)
[2025-03-25] MEDS: ABILIFY 5 MG PO (08:39)
[2025-03-25] MEDS: LIPITOR 40 MG PO (08:39)
[2025-03-25] MEDS: DESENEX/MITRAZOL/ZEASORB 1 APPLIC TOPICAL ×2 (08:40→21:16)
[2025-03-25] MEDS: DITROPAN PO ×2 (08:41→21:22)
--- NOTE | 2025-03-25 14:04 | PTCARENOTE ---
patient denies complaints, tolerating diet, ambulating own rollator walker, vss, will continue to monitor.
--- NOTE | 2025-03-25 15:05 | W.PN.UPDATE ---
Update Note
Progress Note Update
Seen and examined by me independently in collaboration with the medical staff services coordinator.
Lab data and imaging data reviewed.
Addendum as below :
Medically stable for discharge. Ongoing disposition efforts.
[2025-03-25 15:11] VITALS: BP 135/74
--- NOTE | 2025-03-25 15:42 | W.PN.HOSP.TC ---
Today's Communication/Plan
-
Assess for constipation symptoms regularly, use constipation regimen as needed intensively.
Stable for discharge.
Assessment / Plan
Assessment / Plan
Ixrfqtalxu-21-nf[age]-old female with PMHx significant for hypertension, hyperlipidemia, bipolar disorder, schizophrenia was dropped off in the ER by this sister with complaints of suicidal ideation however patient denies suicidal ideation but
complains of headache and no bowel movements (likely dropped off as she is homeless.)
Plan-
Homeless patient-
Needs placement, case management following up for placement,. Pending level [address] PASSR [address] [facility] in [place].
Medically stable for discharge.
Hypertension-
Currently well-controlled
Continue lisinopril 10 mg daily (5 mg dosing at home)
Constipation-chest [id number] amount of gas and stool in the colon no colonic distention
Colace, senna and MiraLAX added.
Add milk of magnesia.
No bowel movement in 48 hours.
Depression schizophrenia/mood disorder-
Psychiatry recommended no treatment at this point of time, stable for discharge from psychiatry standpoint as well.
On home doses of Wellbutrin and aripiprazole.
Continue home medications.
History of TIA-
Continue aspirin and statin.
Plavix discontinued upon admission (past 21 days).
GERD-
Continue PPI.
DVT prophylaxis-
Lovenox
CODE STATUS-
Full code.
Anticipated Discharge: 24 - 48 hours
Subjective/Interval History
-
Date of Service: March 25, 2025
Patient seen at bedside, complaining of constipation-last bowel movement about 2 days ago. Currently on optimal bowel regimen, patient stated that she could not drink MiraLAX because it salty. Will switch to milk of magnesia-discussed with patient.
Objective Data
-
Vital Signs:
Vital Signs
Temp Pulse Resp BP Pulse Ox
97.5 F 108 16 128/79 98
03/25/25 07:19 03/25/25 07:19 03/25/25 07:19 03/25/25 08:23 03/25/25 07:19
I&O
03/24/25 03/25/25 03/26/25
06:59 06:59 06:59
Intake Total 1999 1560 / 1560
Balance 1999 156 / 156
Review of Systems
-
History Source: Patient
All other systems: Reviewed and negative
Abdomen/GI: Reports Constipated
Physical Exam
-
General: Comfortable; Negative Respiratory Distress
HEENT: Moist Mucous Membranes
Respiratory: Clear to Auscultation; Negative Wheezes, Rales, Rhonchi or Crackles
Cardiac: Regular Rhythm and S1/S2; Negative Murmur, Rub or Gallop
GI: Soft, Nontender, Nondistended and Normal Bowel Sounds
Musculoskeletal: No Clubbing, No Cyanosis and No Edema
Neuro: AO x 3 and No Motor Deficits
Psych: Calm
[2025-03-25 16:45] VITALS: BP 134/82
[2025-03-25] MEDS: LOVENOX 40 MG SC (17:06)
[2025-03-25] MEDS: DESYREL 150 MG PO (21:16)
[2025-03-25] MEDS: SENOKOT 8.6 MG PO (21:16)
[2025-03-26 00:06] VITALS: BP 126/73
[2025-03-26] MEDS: TYLENOL 650 MG PO (00:10)
[2025-03-26 07:30] VITALS: BP 118/78
[2025-03-26] MEDS: LOW STRENGTH ASPIRIN 81 MG PO (08:19)
[2025-03-26] MEDS: COLACE 100 MG PO ×2 (08:19→21:07)
[2025-03-26] MEDS: ZESTRIL 10 MG PO (08:20)
[2025-03-26] MEDS: WELLBUTRIN XL (24 hour extended release) 300 MG PO (08:21)
[2025-03-26] MEDS: ABILIFY 5 MG PO (08:21)
[2025-03-26] MEDS: VITAMIN B-12 1000 MCG PO (08:21)
[2025-03-26] MEDS: DITROPAN PO ×2 (08:21→21:07)
[2025-03-26] MEDS: DESENEX/MITRAZOL/ZEASORB 1 APPLIC TOPICAL ×2 (08:21→21:07)
[2025-03-26] MEDS: PROTONIX 40 MG PO (08:21)
[2025-03-26] MEDS: LIPITOR 40 MG PO (08:21)
--- NOTE | 2025-03-26 11:46 | W.PN.HOSP.TC ---
Addendum entered and electronically signed by Gerhard Lorenzo MD 03/26/25 13:41:
Seen and examined by me independently in collaboration with the emergency medical dispatcher.
Lab data and imaging data reviewed.
Addendum as below :
No new medical issues. Ongoing disposition efforts.
Original Note:
Today's Communication/Plan
-
Milk of magnesia added.
Stable for discharge.
Assessment / Plan
Assessment / Plan
Bxcuqzqnpk-48-udmi-old female with PMHx significant for hypertension, hyperlipidemia, bipolar disorder, schizophrenia was dropped off in the ER by this sister with complaints of suicidal ideation however patient denies suicidal ideation but
complains of headache and no bowel movements (likely dropped off as she is homeless.)
Plan-
Homeless patient-
Needs placement, case management following up for placement,. Pending level 2 PASSR for transfer to [facility] in [place].
Medically stable for discharge.
Hypertension-
Currently well-controlled
Continue lisinopril 10 mg daily (5 mg dosing at home)
Constipation-chest [id number]-xwusanvu amount of gas and stool in the colon no colonic distention
Colace, senna and MiraLAX added.
Add milk of magnesia.
No bowel movement in 48 hours.
Depression schizophrenia/mood disorder-
Psychiatry recommended no treatment at this point of time, stable for discharge from psychiatry standpoint as well.
On home doses of Wellbutrin and aripiprazole.
Continue home medications.
History of TIA-
Continue aspirin and statin.
Plavix discontinued upon admission (past 21 days).
GERD-
Continue PPI.
DVT prophylaxis-
Lovenox
CODE STATUS-
Full code.
Anticipated Discharge: Within 24 hours
Subjective/Interval History
-
Date of Service: March 26, 2025
Constipation, no other complaints
Objective Data
-
Vital Signs:
Vital Signs
Temp Pulse Resp BP Pulse Ox
98.6 F 96 16 118/78 97
03/26/25 07:30 03/26/25 08:20 03/26/25 07:30 03/26/25 08:20 03/26/25 07:30
I&O
03/25/25 03/26/25 03/27/25
06:59 06:59 06:59
Intake Total 1560 / 1560 960 / 960
Balance 1560 / 1560 960 / 960
Review of Systems
-
History Source: Patient
All other systems: Reviewed and negative
Abdomen/GI: Reports Constipated
Physical Exam
-
General: No Apparent Distress and Comfortable
HEENT: Moist Mucous Membranes
Respiratory: Clear to Auscultation; Negative Wheezes, Rales, Rhonchi or Crackles
Cardiac: Regular Rhythm and S1/S2; Negative Murmur, Rub or Gallop
GI: Soft, Nontender, Nondistended and Normal Bowel Sounds
Musculoskeletal: No Clubbing, No Cyanosis and No Edema
Neuro: AO x 3 and No Motor Deficits
Psych: Calm
[2025-03-26] MEDS: MILK OF MAGNESIA 30 ML PO (12:23)
--- NOTE | 2025-03-26 13:04 | CM ---
Pt has been accepted for transfer to [facility] in [place] once Level 2 assessment has been processed. Await updates from [employer] regarding approval to move forward on transfer to [facility].
[2025-03-26 15:45] VITALS: BP 121/66
[2025-03-26 17:35] LABS: COVID-19 Antigen Negative (Negative)
[2025-03-26] MEDS: LOVENOX 40 MG SC (18:09)
[2025-03-26] MEDS: SENOKOT 8.6 MG PO (21:07)
[2025-03-26] MEDS: DESYREL 150 MG PO (21:07)
[2025-03-26 23:00] VITALS: BP 114/63
[2025-03-27 06:25] LABS: Hematocrit 34.3 % (37.0-47.0); Hemoglobin 11.1 g/dL (12.0-16.0); Mean Corp Hgb Conc. 32.4 g/dL (33.0-37.0); Mean Corpuscular Hgb 31.8 pg (27.0-31.0); Mean Corpuscular Volume 98.3 fL (81.0-99.0); Mean Platelet Volume 9.9 fL (7.4-10.4); Platelet Count 205 10^3/uL (130-400); Red Blood Cell Count 3.49 10^6/uL (4.20-5.40); Red Cell Dist. Width 12.7 % (11.5-14.5)
[2025-03-27 06:51] LABS: Blood Urea Nitrogen 17 mg/dl (7-17); Calcium 9.2 mg/dl (8.4-10.2); Carbon Dioxide 25 mmol/L (22-30); Chloride 105 mmol/L (98-107); Estimated Creatinine Clearance 56 ml/min; Glucose 108 mg/dl (70-99); Potassium 4.5 mmol/L (3.5-5.1); Sodium 137 mmol/L (135-145); eGFR > 60.00
[2025-03-27 07:31] VITALS: BP 113/64
[2025-03-27] MEDS: WELLBUTRIN XL (24 hour extended release) 300 MG PO (08:19)
[2025-03-27] MEDS: PROTONIX 40 MG PO (08:19)
[2025-03-27] MEDS: VITAMIN B-12 1000 MCG PO (08:19)
[2025-03-27] MEDS: COLACE 100 MG PO ×2 (08:19→21:15)
[2025-03-27] MEDS: DESENEX/MITRAZOL/ZEASORB TOPICAL (08:20)
[2025-03-27] MEDS: DITROPAN PO ×2 (08:20→21:15)
[2025-03-27] MEDS: LIPITOR 40 MG PO (08:20)
[2025-03-27] MEDS: ZESTRIL 10 MG PO (08:20)
[2025-03-27] MEDS: ABILIFY 5 MG PO (08:20)
[2025-03-27] MEDS: LOW STRENGTH ASPIRIN 81 MG PO (08:20)
[2025-03-27 15:00] VITALS: BP 117/76
[2025-03-27 15:53] VITALS: BP 113/64; PULSE 88; O2SAT 96
--- NOTE | 2025-03-27 16:05 | DOWNTIME ---
There was a [employer] Client Asset Protection Greeter Downtime on 03/27/2025 from 1230 to 03/27/2025 at 1550. Downtime documentation of patient's care, including medication administrations, has been reconciled in the electronic record per guidelines. Refer to the
patient's paper chart under the miscellaneous tab to see printed paper medication records and downtime forms.
--- NOTE | 2025-03-27 16:41 | W.PN.HOSP.TC ---
Addendum entered and electronically signed by Gerhard Lorenzo MD 03/27/25 17:28:
Seen and examined by me independently in collaboration with the medical professionals.
Lab data and imaging data reviewed.
Addendum as below :
Patient with fever since yesterday. Her only complaint is nasal congestion and postnasal mucus and cough. Ongoing for more than a week. Some pressure in the sinuses of the face. No shortness of breath.
No nausea vomiting or diarrhea. No abdominal pain. Denies any dysuria or frequency of urine. Denies any joint pains or swellings. No rash.
Nontoxic.
Chest clear.
Suspicion is for acute sinusitis/upper respiratory infection. Obtain chest x-ray along with sinus x-ray. Start on Augmentin and follow clinical course.
Original Note:
Today's Communication/Plan
-
Add Augmentin.
Chest x-ray.
Assessment / Plan
Assessment / Plan
Zivxdabxqd-89-cyky-old female with PMHx significant for hypertension, hyperlipidemia, bipolar disorder, schizophrenia was dropped off in the ER by this sister with complaints of suicidal ideation however patient denies suicidal ideation but
complains of headache and no bowel movements (likely dropped off as she is homeless.)
Plan-
Febrile illness-
COVID and flu negative
No leukocytosis, no tachycardia, tachypnea.
Trend fever curves.
Bilateral sinus tenderness on physical exam
Obtain chest x-ray to evaluate for pneumonia.
At Augmentin for sinusitis
Homeless patient-
Needs placement, case management following up for placement,. Pending level 2 PASSR for transfer to [facility] in [place].
Medically stable for discharge.
Hypertension-
Currently well-controlled
Continue lisinopril 10 mg daily (5 mg dosing at home)
Constipation-chest q-emy-znlknzju amount of gas and stool in the colon no colonic distention
Colace, senna and MiraLAX added.
Add milk of magnesia.
No bowel movement in 48 hours.
Depression schizophrenia/mood disorder-
Psychiatry recommended no treatment at this point of time, stable for discharge from psychiatry standpoint as well.
On home doses of Wellbutrin and aripiprazole.
Continue home medications.
History of TIA-
Continue aspirin and statin.
Plavix discontinued upon admission (past 21 days).
GERD-
Continue PPI.
DVT prophylaxis-
Lovenox
CODE STATUS-
Full code.
Anticipated Discharge: > 48 hours
Subjective/Interval History
-
Date of Service: March 27, 2025
Febrile illness with rising temperature spikes, patient complains of cough, congestion and postnasal drip. She tested negative for flu and COVID. She has some associated intermittent shortness of breath, but that usually is associated with her
anxiety and it has not changed since the day of admission.
Objective Data
-
Labs:
Laboratory Results
03/27/25
05:49
WBC 7.0
Hgb 11.1 L
Hct 34.3 L
Plt Count 205
Sodium 137
Potassium 4.5
Chloride 105
Carbon Dioxide 25
BUN 17
Creatinine 0.8
Glucose 108 H
Calcium 9.2
Vital Signs:
Vital Signs
Temp Pulse Resp BP Pulse Ox
98.3 F 88 18 117/76 96
03/27/25 15:00 03/27/25 15:00 03/27/25 15:00 03/27/25 15:00 03/27/25 15:00
I&O
03/26/25 03/27/25 03/28/25
06:59 06:59 06:59
Intake Total 960 / 960 1620 / 1620
Balance 960 / 960 1620 / 1620
Review of Systems
-
History Source: Patient
Constitutional: Reports Fever, Fatigue and Chills
EENT: Reports Runny Nose and Other (Stuffy nose and sinuses tenderness, with some headaches.); Denies Sore Throat
Respiratory: Reports Cough and Trouble Breathing
Cardiac: Reports No Symptoms
Abdomen/GI: Reports No Symptoms
Genitourinary: Reports No Symptoms
Musculoskeletal: Reports No Symptoms
Skin: Reports No Symptoms
Neuro: Reports No Symptoms
Hematologic / Lymphatic: Reports No Symptoms
Physical Exam
-
General: No Apparent Distress and Comfortable
HEENT: Moist Mucous Membranes, Anicteric and [place] Conjunctivae
Respiratory: Clear to Auscultation; Negative Wheezes, Rales, Rhonchi or Crackles
Cardiac: Regular Rhythm and S1/S2; Negative Murmur, Rub or Gallop
GI: Soft, Nontender, Nondistended and Normal Bowel Sounds
Musculoskeletal: No Clubbing, No Cyanosis and No Edema
Neuro: AO x 3 and No Motor Deficits
Psych: Calm
Data Reviewed
-
Labs: Labs Reviewed by me and Discussed with Physician
[2025-03-27] MEDS: LOVENOX 40 MG SC (17:48)
[2025-03-27] MEDS: DESENEX/MITRAZOL/ZEASORB 1 APPLIC TOPICAL (21:15)
[2025-03-27] MEDS: AUGMENTIN 875 MG/125 MG 1 TABLET PO (21:15)
[2025-03-27] MEDS: DESYREL 150 MG PO (21:15)
[2025-03-27] MEDS: SENOKOT PO ×2 (21:15→21:21)
--- NOTE | 2025-03-28 | PTCARENOTE ---
Addendum entered by Any Montgomery RN 03/28/25 03:15:
Pt now calling 911 three times demanding a police and fire dispatcher come speak with her. Police in to talk with patient. Pt stated she heard people talking about transferring her to another facility overnight. Pt notified she is not going anywhere tonight.
Original Note:
Pt rang call cardona and handed PCT a note that read 'I have the number of Jeovany Allen medical laboratory technical officer of [facility] in case I have any complaints Sincerely Leeann Cueto.' When asked of said complaints patient expressed she would talk
to 'Jeovany' in the morning. This RN was notified by nursing traffic sign erection supervisor that patient did in fact call Jeovany Allen three times. Charge nurse in to see patient.
[2025-03-28 00:35] VITALS: BP 146/71
[2025-03-28 07:00] VITALS: BP 150/87
[2025-03-28] MEDS: ABILIFY 5 MG PO (08:01)
[2025-03-28] MEDS: AUGMENTIN 875 MG/125 MG 1 TABLET PO ×2 (08:01→21:26)
[2025-03-28] MEDS: COLACE 100 MG PO ×2 (08:01→21:29)
[2025-03-28] MEDS: PROTONIX 40 MG PO (08:01)
[2025-03-28] MEDS: VITAMIN B-12 1000 MCG PO (08:01)
[2025-03-28] MEDS: LIPITOR 40 MG PO (08:01)
[2025-03-28] MEDS: WELLBUTRIN XL (24 hour extended release) 300 MG PO (08:01)
[2025-03-28] MEDS: LOW STRENGTH ASPIRIN 81 MG PO (08:01)
[2025-03-28] MEDS: DITROPAN PO ×2 (08:03→21:32)
[2025-03-28] MEDS: DESENEX/MITRAZOL/ZEASORB 1 APPLIC TOPICAL ×2 (08:03→21:30)
[2025-03-28] MEDS: ZESTRIL 10 MG PO (08:04)
--- NOTE | 2025-03-28 10:32 | W.PN.HOSP.TC ---
Addendum entered and electronically signed by Gerhard Lorenzo MD 03/28/25 13:21:
Seen and examined by me independently in collaboration with the biomedical engineer.
Lab data and imaging data reviewed.
Addendum as below :
No further fevers. Feels improved from a nasal congestion standpoint.
Tolerating antibiotics without GI symptoms.
Chest is clear and chest x-ray without evidence of pneumonia.
Continue with oral Augmentin for possible acute sinusitis/URI infection.
Medically stable for discharge. Ongoing disposition efforts.
Original Note:
Today's Communication/Plan
-
Continue Augmentin.
Stable for discharge, awaiting placement.
Assessment / Plan
Assessment / Plan
Uaxptmzesj-18-tzww-old female with PMHx significant for hypertension, hyperlipidemia, bipolar disorder, schizophrenia was dropped off in the ER by this sister with complaints of suicidal ideation however patient denies suicidal ideation but
complains of headache and no bowel movements (likely dropped off as she is homeless.)
Plan-
Febrile illness-
COVID and flu negative
No leukocytosis, no tachycardia, tachypnea.
Trend fever curves.
Bilateral sinus tenderness on physical exam
Chest x-ray showed elevation of left hemidiaphragm-mild, no evidence for pneumonia.
Continue Augmentin.
Homeless patient-
Needs placement, case management following up for placement,. Pending level 2 PASSR for transfer to [facility] in [place].
Medically stable for discharge.
Hypertension-
Currently well-controlled
Continue lisinopril 10 mg daily (5 mg dosing at home)
Constipation-chest m-ted-jajqwvmg amount of gas and stool in the colon no colonic distention
Colace, senna and MiraLAX added.
Add milk of magnesia.
No bowel movement in 48 hours.
Depression schizophrenia/mood disorder-
Psychiatry recommended no treatment at this point of time, stable for discharge from psychiatry standpoint as well.
On home doses of Wellbutrin and aripiprazole.
Continue home medications.
History of TIA-
Continue aspirin and statin.
Plavix discontinued upon admission (past 21 days).
GERD-
Continue PPI.
DVT prophylaxis-
Lovenox
CODE STATUS-
Full code.
Anticipated Discharge: > 48 hours
Subjective/Interval History
-
Date of Service: March 28, 2025
Patient reports to be still having intermittent shortness of breath and occasional cough. No expectoration.
Objective Data
-
Vital Signs:
Vital Signs
Temp Pulse Resp BP Pulse Ox
98.6 F 96 18 150/87 99
03/28/25 07:00 03/28/25 08:04 03/28/25 07:00 03/28/25 08:04 03/28/25 09:59
I&O
03/27/25 03/28/25 03/29/25
06:59 06:59 06:59
Intake Total 1620 / 1620 300 / 300
Balance 1620 / 1620 300 / 300
Review of Systems
-
History Source: Patient
Constitutional: Reports Fatigue
EENT: Reports Other (facial pain, postnasal drip, stuffy and runny nose.)
Respiratory: Reports Cough, Trouble Breathing and Other (No expectoration.)
Cardiac: Reports No Symptoms
Abdomen/GI: Reports No Symptoms
Genitourinary: Reports No Symptoms; Denies Dysuria, Frequency or Flank Pain
Musculoskeletal: Reports No Symptoms
Neuro: Reports No Symptoms
Hematologic / Lymphatic: Reports No Symptoms
Physical Exam
-
General: No Apparent Distress and Comfortable
HEENT: Moist Mucous Membranes, Anicteric and [place] Conjunctivae
Respiratory: Clear to Auscultation; Negative Wheezes, Rales or Rhonchi
Cardiac: Regular Rhythm and S1/S2; Negative Murmur, Rub or Gallop
GI: Soft, Nontender, Nondistended and Normal Bowel Sounds
Musculoskeletal: No Clubbing, No Cyanosis and No Edema
Skin: Warm
Neuro: AO x 3 and No Motor Deficits
Psych: Calm
--- NOTE | 2025-03-28 12:00 | PTCARENOTE ---
Met with pt to discuss any concerns or needs that prompted her to call ROLLOUT MANAGER and 911. Patient tells me she had a bad dream that made her feel that someone was going to take her so she called the police and the ROLLOUT MANAGER to help her. She understands now that
this was not really happening and that calling the police and the ROLLOUT MANAGER was not necessary. She is now pleasant, although teary, agrees with plan to transfer to [facility] when it is set up. Denies any clinical needs at this time.
[2025-03-28 15:00] VITALS: BP 140/74
--- NOTE | 2025-03-28 15:45 | CM ---
Addendum entered by Kathy Galindo 03/28/25 16:16:
TC back from Shahnaz, looks like information went on her end, she will reach out to her contact, Leticia and get back to me.
Original Note:
TC to [facility] PASRR Coordinator at [phone], spoke with Alyson.
Alyson was unable to locate file on patient.
TC to Shahnaz, Director for PASRR Level 2 at [facility], she will locate file and get back to this CM.
Level 2 PASSR completed 03/20/25, determination pending.
--- NOTE | 2025-03-28 16:35 | CM ---
Jorge met with Leeann daily this week to provide support and encouragement; made her aware that we are still pursuing trasnfer to [facility] in [facility] once we have the approval for transfer from [facility].
Calls received from Leeann who did not recall our discussions; asking for me to visit. CM met with Leeann this afternoon, again provided support and encouragement.
Plan: CM following to coordinate transfer to [facility] in [facility] once we have the approval for transfer from [facility].
[2025-03-28] MEDS: LOVENOX 40 MG SC (17:26)
[2025-03-28] MEDS: SENOKOT PO (22:25)
[2025-03-28] MEDS: DESYREL 150 MG PO (22:28)
[2025-03-28 23:04] VITALS: BP 118/68
[2025-03-29 07:00] VITALS: BP 133/79
[2025-03-29] MEDS: COLACE 100 MG PO ×2 (08:07→21:11)
[2025-03-29] MEDS: DITROPAN PO ×2 (08:07→21:12)
[2025-03-29] MEDS: AUGMENTIN 875 MG/125 MG 1 TABLET PO ×2 (08:07→21:11)
[2025-03-29] MEDS: ABILIFY 5 MG PO (08:08)
[2025-03-29] MEDS: LIPITOR 40 MG PO (08:08)
[2025-03-29] MEDS: LOW STRENGTH ASPIRIN 81 MG PO (08:08)
[2025-03-29] MEDS: WELLBUTRIN XL (24 hour extended release) 300 MG PO (08:08)
[2025-03-29] MEDS: ZESTRIL 10 MG PO (08:08)
[2025-03-29] MEDS: PROTONIX 40 MG PO (08:08)
[2025-03-29] MEDS: VITAMIN B-12 1000 MCG PO (08:08)
[2025-03-29] MEDS: DESENEX/MITRAZOL/ZEASORB 1 APPLIC TOPICAL (08:09)
--- NOTE | 2025-03-29 14:14 | W.PN.HOSP.TC ---
Addendum entered and electronically signed by Gerhard Lorenzo MD 03/29/25 14:48:
Seen and examined by me independently in collaboration with the medical transcription radiology.
Lab data and imaging data reviewed.
Addendum as below :
Medically stable for discharge. Ongoing disposition efforts.
Original Note:
Today's Communication/Plan
-
----
Stable for discharge when cleared by case management.
Assessment / Plan
Assessment / Plan
Xzvifbsyuu-59-gz[age]-old female with PMHx significant for hypertension, hyperlipidemia, bipolar disorder, schizophrenia was dropped off in the ER by this sister with complaints of suicidal ideation however patient denies suicidal ideation but
complains of headache and no bowel movements (likely dropped off as she is homeless.)
Plan-
Febrile illness-
COVID and flu negative
No leukocytosis, no tachycardia, tachypnea.
Trend fever curves.
Bilateral sinus tenderness on physical exam
Chest x-ray showed elevation of left hemidiaphragm-mild, no evidence for pneumonia.
Continue Augmentin.
Homeless patient-
Needs placement, case management following up for placement,. Pending level 2 PASSR for transfer to [facility] in [place].
Medically stable for discharge.
Hypertension-
Currently well-controlled
Continue lisinopril 10 mg daily (5 mg dosing at home)
Constipation-chest c-udq-iigobzhn amount of gas and stool in the colon no colonic distention
Colace, senna and MiraLAX added.
Add milk of magnesia.
No bowel movement in 48 hours.
Depression schizophrenia/mood disorder-
Psychiatry recommended no treatment at this point of time, stable for discharge from psychiatry standpoint as well.
On home doses of Wellbutrin and aripiprazole.
Continue home medications.
History of TIA-
Continue aspirin and statin.
Plavix discontinued upon admission (past 21 days).
GERD-
Continue PPI.
DVT prophylaxis-
Lovenox
CODE STATUS-
Full code.
Anticipated Discharge: 24 - 48 hours
Subjective/Interval History
-
Date of Service: March 29, 2025
No new complaints, complains on social issues with nurses.
Objective Data
-
Vital Signs:
Vital Signs
Temp Pulse Resp BP Pulse Ox
98.4 F 89 18 133/79 98
03/29/25 07:00 03/29/25 07:00 03/29/25 07:00 03/29/25 07:00 03/29/25 08:00
I&O
03/28/25 03/29/25 03/30/25
06:59 06:59 06:59
Intake Total 300 / 300 540 / 540
Balance 300 / 300 540 / 540
Review of Systems
-
History Source: Patient
Constitutional: Reports No Symptoms
Respiratory: Reports No Symptoms
Cardiac: Reports No Symptoms
Abdomen/GI: Reports No Symptoms
Genitourinary: Reports No Symptoms
Neuro: Reports No Symptoms
Hematologic / Lymphatic: Reports No Symptoms
Allergy / Immunology: Reports No Symptoms
Physical Exam
-
General: No Apparent Distress and Comfortable
Respiratory: Clear to Auscultation; Negative Wheezes, Rales, Rhonchi or Crackles
Cardiac: Regular Rhythm and S1/S2; Negative Murmur, Rub or Gallop
GI: Soft, Nontender, Nondistended and Normal Bowel Sounds
Musculoskeletal: No Clubbing, No Cyanosis and No Edema
Neuro: AO x 3 and No Motor Deficits
Psych: Calm
--- NOTE | 2025-03-29 14:32 | CM ---
Level 2 assessment has been approved. Pt has been accepted for transfer to [facility] with requested transport time for 11am tomorrow. Leeann is happy to be going tomorrow, as her brother will be able to visit her there.
Due to homelessness, will cover the cost of the w/c van transport.
[2025-03-29 15:00] VITALS: BP 132/74
[2025-03-29] MEDS: LOVENOX 40 MG SC (17:11)
[2025-03-29] MEDS: DESENEX/MITRAZOL/ZEASORB TOPICAL (21:11)
[2025-03-29] MEDS: DESYREL 150 MG PO (21:12)
[2025-03-29] MEDS: SENOKOT PO (21:13)
[2025-03-29 23:10] VITALS: BP 106/66
[2025-03-30 07:00] VITALS: BP 150/89
[2025-03-30] MEDS: VITAMIN B-12 1000 MCG PO (08:27)
[2025-03-30] MEDS: ZESTRIL 10 MG PO (08:27)
[2025-03-30] MEDS: COLACE 100 MG PO (08:27)
[2025-03-30] MEDS: PROTONIX 40 MG PO (08:27)
[2025-03-30] MEDS: AUGMENTIN 875 MG/125 MG 1 TABLET PO (08:27)
[2025-03-30] MEDS: LOW STRENGTH ASPIRIN 81 MG PO (08:27)
[2025-03-30] MEDS: ABILIFY 5 MG PO (08:27)
[2025-03-30] MEDS: DITROPAN 2.5 MG PO (08:27)
[2025-03-30] MEDS: LIPITOR 40 MG PO (08:27)
[2025-03-30] MEDS: WELLBUTRIN XL (24 hour extended release) 300 MG PO (08:27)
[2025-03-30] MEDS: DESENEX/MITRAZOL/ZEASORB 1 APPLIC TOPICAL (08:31)
--- NOTE | 2025-03-30 09:54 | CM ---
Patient seen at bedside
discharge to [facility] in [place]
w/c van cost covered through hospital
IMM explained & signed. In chart
spoke with Delilah at [facility]
LM with sister Claribel
PLAN: [facility]
Report #: [phone] - ask for [address] [place], [place] [id number] nursing or Nursing alumina plant supervisor
Fax #: [phone]
w/c van to transport form on chart
[2025-03-30 11:18] VITALS: BP 134/89
--- NOTE | 2025-03-30 13:05 | W.PN.UPDATE ---
Update Note
Progress Note Update
Seen and examined by me independently in collaboration with the medical biller.
Lab data and imaging data reviewed.
Addendum as below :
Patient voices no specific complaints. Remains afebrile. Improved upper respiratory symptoms. Chest clear. Continue with amoxicillin.
Patient today has a bed at rehab.
Medically stable for discharge to rehab.
Total time of discharge 35 minutes
--- NOTE | 2025-03-30 13:40 | W.PN.HOSP.TC ---
Today's Communication/Plan
-
Stable for discharge
Day 3 of antibiotics
Assessment / Plan
Assessment / Plan
Snubovxrfa-79-kebx-old female with PMHx significant for hypertension, hyperlipidemia, bipolar disorder, schizophrenia was dropped off in the ER by this sister with complaints of suicidal ideation however patient denies suicidal ideation but
complains of headache and no bowel movements (likely dropped off as she is homeless.)
Plan-
Febrile illness-
COVID and flu negative
No leukocytosis, no tachycardia, tachypnea.
Trend fever curves.
Bilateral sinus tenderness on physical exam
Chest x-ray showed elevation of left hemidiaphragm-mild, no evidence for pneumonia.
Continue Augmentin.
Homeless patient-
Needs placement, case management following up for placement,. Pending level [address] [facility] in [place].
Medically stable for discharge.
Hypertension-
Currently well-controlled
Continue lisinopril 10 mg daily (5 mg dosing at home)
Constipation-chest u-xnf-ydaflriz amount of gas and stool in the colon no colonic distention
Colace, senna and MiraLAX added.
Add milk of magnesia.
No bowel movement in 48 hours.
Depression schizophrenia/mood disorder-
Psychiatry recommended no treatment at this point of time, stable for discharge from psychiatry standpoint as well.
On home doses of Wellbutrin and aripiprazole.
Continue home medications.
History of TIA-
Continue aspirin and statin.
Plavix discontinued upon admission (past 21 days).
GERD-
Continue PPI.
DVT prophylaxis-
Lovenox
CODE STATUS-
Full code.
Anticipated Discharge: Today
Subjective/Interval History
-
Date of Service: March 30, 2025
No symptoms today, patient is happy as she got bed.
Objective Data
-
Vital Signs:
Vital Signs
Temp Pulse Resp BP Pulse Ox
98.0 F 89 18 134/89 100
03/30/25 11:18 03/30/25 11:18 03/30/25 11:18 03/30/25 11:18 03/30/25 11:18
I&O
03/29/25 03/30/25 03/31/25
06:59 06:59 06:59
Intake Total 540 / 540 480 / 480
Balance 540 / 540 480 / 480
Review of Systems
-
History Source: Patient
Constitutional: Reports No Symptoms
Respiratory: Reports No Symptoms
Cardiac: Reports No Symptoms
Abdomen/GI: Reports No Symptoms
Genitourinary: Reports No Symptoms
Musculoskeletal: Reports No Symptoms
Neuro: Reports No Symptoms
Hematologic / Lymphatic: Reports No Symptoms
Physical Exam
-
General: Comfortable
HEENT: Moist Mucous Membranes
Respiratory: Clear to Auscultation; Negative Wheezes, Rales, Rhonchi or Crackles
Cardiac: Regular Rhythm and S1/S2; Negative Murmur, Rub or Gallop
GI: Soft, Nontender, Nondistended and Normal Bowel Sounds
Musculoskeletal: No Clubbing, No Cyanosis and No Edema
Neuro: AO x 3 and No Motor Deficits
Psych: Calm
--- NOTE | 2025-03-30 13:42 | W.DCSUMMARY ---
Discharge Summary
Discharge Data
Date of Admission: 03/15/25
Date of Discharge: 03/30/25
-
Pending Results: No
Hospital Course
Knaitkoatn-83-qwey-old female with PMHx significant for hypertension, hyperlipidemia, bipolar disorder, schizophrenia was dropped off in the ER by this sister with complaints of suicidal ideation however patient denies suicidal ideation but
complains of headache and no bowel movements (likely dropped off as she is homeless.)
PCP- Holli Almanzar.
Hospital course-
Upon admission to the hospital, patient was found to to be depressed but not suicidal, patient had severe constipation, and her blood pressures were trending high despite lisinopril 5 mg home medication. She was put on a bowel regimen, her
lisinopril was changed to 10 mg, and a psychiatrist was consulted. Psychiatrist determined her to be stable on her baseline home medications, and no medication changes were made to psychotropic medications.
At the beginning of week 2 of her hospitalization, she experienced a cough shortness of breath and headaches with few episodes of fever. She was given Tylenol, check for flu and COVID both of which were negative. A chest x-ray was obtained and at
the same time she also had severe paranasal sinuses tenderness. She was started on Augmentin, received 3-day course of Augmentin, and was given 4 more days to finish the Augmentin course for discharge.
Recommended regular outpatient standing dose bowel regimen to avoid constipation.
Workup in the hospital-
Chest and abdominal x-ray on 03/15/2021-nonobstructive bowel gas pattern, moderate amount of stool in the colon.
Chest x-ray on 03/28/2025-mild elevation of left hemidiaphragm no acute radiographic abnormality in the chest.
Discharge Plan
-
Patient Disposition: Fdc/SNF
Discharge Diagnosis/Procedures: Sinusitis, depression, homeless
Condition: Good
Diet: No restrictions
Activity: No restrictions
Driving Restrictions: As prior to admission
Bathing Restrictions: None
Referrals:
Jenelle De La Garza MD [Family Provider, Internal Medicine]
Prescriptions:
New
amoxicillin-pot clavulanate 875-125 mg Tablet
1 tab PO Q12 4 Days Qty: 8 0RF
lisinopril 5 mg Tablet
10 mg PO DAILY 30 Days Qty: 30 1RF
Continued
trazodone 100 mg tablet
150 mg PO HS
docusate sodium 100 mg capsule
100 mg PO BID
aspirin 81 mg tablet,chewable
81 mg PO DAILY
bupropion HCl [Wellbutrin XL] 300 mg tablet extended release 24 hr
300 mg PO DAILY
clopidogrel 75 mg Tablet
75 mg PO DAILY Qty: 21 0RF
atorvastatin [Lipitor] 40 mg Tablet
40 mg PO DAILY
polyethylene glycol 3350 [Miralax] 17 gram Powder In Packet
17 g PO DAILYPRN PRN (Reason: constipation)
cyanocobalamin (vitamin B-12) 1,000 mcg Tablet
1,000 mcg PO DAILY
pantoprazole [Protonix] 40 mg Tablet,Delayed Release (Dr/Ec)
40 mg PO DAILY
oxybutynin chloride 5 mg Tablet
2.5 mg PO BID
aripiprazole [Abilify] 5 mg Tablet
5 mg PO DAILY
duloxetine [Cymbalta] 20 mg Capsule,Delayed Release(Dr/Ec)
20 mg PO BID
Discontinued
lisinopril 5 mg Tablet
5 mg PO DAILY
Discharge Orders:
Discharge Patient (As Directed); Ordered 03/30/25
Ordered By: Soraida Quinonez
Discharge Date and Time
Discharge Date/Time: 03/30/25 12:46
Print Language: ROMANIAN
== END 2025-03-30 12:46 ==
LOC: 3 WEST ACU 18:45
PROVIDERS: Emergency Medicine; Internal Medicine; Student in an Organized Health Care Education/Training Program; ADMITTING PHYSICIAN Hospitalist; ATTENDING PHYSICIAN Internal Medicine; EMERGENCY PHYSICIAN Emergency Medicine; FAMILY PHYSICIAN Internal Medicine; OTHER PHYSICIAN Psychiatry & Neurology Psychiatry
DX: F31.9 Bipolar disorder, unspecified (principal); Z59.00 Homelessness unspecified; K59.00 Constipation, unspecified; G45.9 Transient cerebral ischemic attack, unspecified; I10 Essential (primary) hypertension; F20.9 Schizophrenia, unspecified; E78.00 Pure hypercholesterolemia, unspecified; D64.9 Anemia, unspecified; E87.6 Hypokalemia; K21.9 Gastro-esophageal reflux disease without esophagitis; Z86.73 Personal history of transient ischemic attack (TIA), and cerebral infarction without residual deficits; Z79.899 Other long term (current) drug therapy; Z11.52 Encounter for screening for COVID-19; J32.9 Chronic sinusitis, unspecified
CPT/HCPCS: 71046; 74022; 80048; 80053; 82728; 83540; 83550; 83880; 85025; 85027; 87502; 87811; 97530; 99284; G0378

== ENCOUNTER 2025-04-15 03:18 | Emergency (ER) | payer MEDICARE, OTHER, SELFPAY ==
[2025-04-15] VITALS (7 sets, daily range): BP systolic 110–135; BP diastolic 65–90; BMI 27.0
[2025-04-15 04:11] LABS: % Basophils 0.6 % (0-2); % Eosinophils 4.8 % (0-6); % Immature Granulocytes 0.3 % (0-0.5); % Lymphocytes 47.3 % (20.5-51.1); % Monocytes 8.5 % (1.7-9.3); % Neutrophils 38.5 % (42.2-75.2); Absolute Eosinophils 0.2 10^3/uL (0-0.7); Absolute Lymphocytes 1.6 10^3/uL (1.2-3.4); Absolute Monocytes 0.3 10^3/uL (0.1-0.6); Absolute Neutrophils 1.3 10^3/uL (1.4-6.5); Hematocrit 34.8 % (37.0-47.0); Hemoglobin 11.4 g/dL (12.0-16.0); Mean Corp Hgb Conc. 32.8 g/dL (33.0-37.0); Mean Corpuscular Volume 97.8 fL (81.0-99.0); Mean Platelet Volume 10.2 fL (7.4-10.4); Nucleated Red Blood Cells % 0 %; Platelet Count 160 10^3/uL (130-400); Red Blood Cell Count 3.56 10^6/uL (4.20-5.40); Red Cell Dist. Width 12.1 % (11.5-14.5); White Blood Cell Count 3.3 10^3/uL (4.8-10.8)
[2025-04-15 04:40] LABS: ALT (SGPT) 12 U/L (0-35); AST (SGOT) 21 U/L (14-36); Alkaline Phosphatase 79 U/L (38-126); Blood Urea Nitrogen 17 mg/dl (7-17); Carbon Dioxide 29 mmol/L (22-30); Chloride 111 mmol/L (98-107); Estimated Creatinine Clearance 56 ml/min; Glucose 89 mg/dl (70-99); Potassium 4.3 mmol/L (3.5-5.1); Sodium 143 mmol/L (135-145); Total Bilirubin 0.5 mg/dl (0.2-1.3); Total Protein 6.3 g/dl (6.3-8.2); eGFR > 60.00
[2025-04-15 04:46] LABS: NT-proBNP 24.8 pg/ml; Troponin I < 0.012 ng/ml
--- NOTE | 2025-04-15 06:20 | ED.GENMED ---
History of Present Illness
General
Chief Complaint: Breathing Problem
Source: patient
Exam Limitations: none
Time Seen by Provider: 04/15/25 03:42
Nursing documentation reviewed up to this point in time: agreed with
History of Present Illness
History of Present Illness:
Note:
CHIEF COMPLAINT(S)
Trouble breathing, tremors.
HISTORY OF PRESENT ILLNESS
The patient is a 70-year-old female who presents with complaints of trouble breathing and tremors, reported to have been ongoing since an unspecified time. The patient describes feeling short of breath with shallow breathing and a sensation of not
getting enough air. The patient denies any recent fever. The conversation reveals the patient�s difficulty in breathing has persisted despite being on her medications correctly.
CHRONIC MEDICAL CONDITIONS SIGNIFICANTLY AFFECTING CARE
1. Hypertension
2. Hyperlipidemia
SOCIAL DETERMINANTS AFFECTING HEALTH
The patient reported a history of being at [facility] as they attempted to find her a place to live, indicating potential issues with housing stability. The patient mentioned a past occasion where she was told to be 'suicidal 'in
an attempt to get placed. She states that she cannot go through with it. This was relevant in her previous care at [facility], though she reported not being suicidal at the time of that assessment.
SOCIAL HISTORY
The patient has a history of smoking, but no longer smokes.
REVIEW OF SYSTEMS
- Respiratory: Trouble breathing, shortness of breath, shallow breathing, sensation of not getting enough air.
- Neurological: Tremors.
- General: Reports chills. No fever.
PHYSICAL EXAM
- Respiratory: Audible breath sounds noted.
Nursing notes reviewed and vital signs reviewed.
PROBLEM LIST
Acute:
1. Trouble breathing
2. Tremors
Chronic:
1. Hypertension
2. Hyperlipidemia
PLAN
1. Monitor the patients breathing and tremors closely.
2. Consider further interventions or treatments for her respiratory symptoms, depending on evaluation.
DIFFERENTIAL DIAGNOSIS
The Differential Diagnosis includes, in no particular order and is not limited to:
1. Chronic Obstructive Pulmonary Disease
2. Congestive heart failure
3. Anxiety or panic disorder
4. Pulmonary embolism
5. Pneumonia
6. Hyperthyroidism
7. Drug-induced tremors
8. Anemia
9. Respiratory infection
10. Neurological disorder
CARE-UPDATE
04/15/25 - 05:57
The patient currently reports no chest pain, shortness of breath, abdominal pain, blurry vision, or headache. They expressed a desire to return home. The abdominal pain experienced earlier has resolved. The plan is to have the patient try eating and
drinking small amounts to assess tolerance.
Disposition:
SUMMARY OF ENCOUNTER
The patient, a 70-year-old female, was seen in the emergency department due to complaints of trouble breathing and tremors. Upon evaluation, she mentioned that she currently feels better, with no symptoms present at this time. She is awake and more
responsive to verbal stimuli.
DISPOSITION
Discharge.
ASSESSMENT
The patient is experiencing resolution of her respiratory symptoms and tremors.
INDEPENDENT INTERPRETATION OF TESTS
- My independent interpretation of the chest X-ray is normal findings.
- My independent interpretation of lab work is that results appear reasonable.
PLAN
The patient expressed a desire to be discharged and return to her facility. There are no further acute issues requiring management at this time.
SMOKING CESSATION COUNSELING
The patient smokes cigarettes. I counseled them on cessation and informed them that smoking poses a significant health risk and can cause various serious health ailments. I encouraged them to consider quitting and discuss cessation options with
their primary care provider.
MEDICAL DECISION MAKING
Number and Complexity of Problems Addressed: The patient presented with acute respiratory symptoms and tremors. The resolution of these symptoms decreased the complexity of the medical decision-making.
Data: Reviewed lab work and X-ray findings which showed normal results, aiding in the decision for discharge.
Risk: Considered social determinants of health, such as potential housing instability and smoking history, in the patients care plan.
Past History
Past History
ED Past Medical History: CVA (Previous TIAs), HTN, Hypercholesterolemia and Psychiatric (bipolar,. schizo, a/d)
ED Past Surgical History: Orthopedic (Shon hip replacements, Spinal fusion, Left foot surgery, Left knee replacement) and Other (Abd Lipectomy)
Social History
Tobacco: Non-smoker
Alcohol: None
Personal:
Living: alone
Employment: Disabled
Family History
Family History: Other (Noncontributory)
Phy Exam
General Physical Exam
General Presentation: well appearing and no apparent distress
General Skin: warm and dry
General Habitus: normal
General Mental: alert
General Hydration: appears well hydrated
ENT Exam
ENT Exam: EOMI, pharynx normal, neck supple and normocephalic
Eye Exam
Eye Exam: PERRL, cornea clear and conjunctiva normal
Cardiovascular Exam
Cardiovascular Exam: regular rate/rhythm, no edema, no murmur and normal peripheral pulses
Pulmonary Exam
Pulmonary Exam: lungs clear, no respiratory distress, no rales, no crackles, no rhonchi, no stridor, no wheezing and no cough
Gastrointestinal Exam
Gastrointestinal Exam: normal bowel sounds, non tender, soft, no organomegaly, no pulsatile mass and non distended
Neurological Exam
Neurological Exam: alert, oriented x3, no motor deficits and speech normal
Musculoskeletal Exam
Musculoskeletal Exam: full ROM and no edema
Skin Exam
Skin Exam: normal color, warm/dry, no rash and no petechia
Psychiatric Exam
Psychiatric Exam: normal mood/affect
Scores
Heart Failure Risk
Heart Failure Risk Score: Not Applicable
Course
Orders/Labs/Results
Orders:
Orders
04/15/25 03:21
Electrocardiogram (*1) Urgent
Reason for Study: Other
Other Reason for Exam: Respiratory Distress
Cardiac Monitoring- Treatment ONCE
EKG- Treatment ONCE
IV Insert/Care/Rem.- Treatment PRN
CR Chest - 2 Views Urgent
Comment:
Reason For Exam: respiratory distress
O2 Therapy [RESP] Urgent
Titrate/Wean O2 to maintain O2 sat greater than (%): 93
Special Instructions: TO MAINTAIN CONTINUOUS O2 SATS >/= 93%
Pulse Ox/cont/shift [RESP] Urgent
Quantity: 1
Special Instructions: continuous pulse ox
04/15/25 04:00
Complete Blood Count/With Diff Urgent
Comprehensive Metabolic Panel Urgent
NT-proBNP Urgent
Troponin I Urgent
Abnormal Lab Results
04/15/25
04:00
WBC 3.3 L 10^3/uL
(4.8-10.8)
RBC 3.56 L 10^6/uL
(4.20-5.40)
Hgb 11.4 L g/dL
(12.0-16.0)
Hct 34.8 L %
(37.0-47.0)
MCH 32.0 H pg
(27.0-31.0)
MCHC 32.8 L g/dL
(33.0-37.0)
Absolute Neuts (auto) 1.3 L 10^3/uL
(1.4-6.5)
Neutrophils % 38.5 L %
(42.2-75.2)
Chloride 111 H mmol/L
(98-107)
04/15/25 04:00
04/15/25 04:00
Vital Signs
Initial and Last Documented VS:
Initial Vital Signs
Temp Pulse Resp BP Pulse Ox
97.7 F 76 20 135/90 94
04/15/25 03:22 04/15/25 03:22 04/15/25 03:22 04/15/25 03:22 04/15/25 03:22
Last Documented Vital Signs
Temp Pulse Resp BP Pulse Ox
97.7 F 90 20 117/66 98
04/15/25 03:26 04/15/25 05:44 04/15/25 05:44 04/15/25 05:44 04/15/25 05:44
*Radiology
Radiology exam reviewed: all reviewed NAD by ED Provider
*Pulse Oximetry
Patient hypoxic: no (98% on room air)
*Critical Care Note
Total Time (30-74mins, 75-104mins- exclusive of procedures): Not Applicable
ED Attending Note
-
Portions of this chart may have been created with voice recognition software.� Occasional wrong word or��sound alike� substitutions may have occurred due to the inherent limitations of voice recognition software.
Discharge Plan
Departure
Patient Disposition: Snf/SNF
Date of Disposition: 04/15/25
Time of Disposition: 06:20
Patient with high blood pressure during this ER visit?: No
Discharge Problem:
Acute respiratory distress
Instructions: Shortness of Breath (Dyspnea) (DC)
Prescriptions:
No Action
trazodone 100 mg tablet
150 mg PO HS
docusate sodium 100 mg capsule
100 mg PO BID
aspirin 81 mg tablet,chewable
81 mg PO DAILY
bupropion HCl [Wellbutrin XL] 300 mg tablet extended release 24 hr
300 mg PO DAILY
atorvastatin [Lipitor] 40 mg Tablet
40 mg PO DAILY
cyanocobalamin (vitamin B-12) 1,000 mcg Tablet
1,000 mcg PO DAILY
pantoprazole [Protonix] 40 mg Tablet,Delayed Release (Dr/Ec)
40 mg PO DAILY
oxybutynin chloride 5 mg Tablet
2.5 mg PO BID
aripiprazole [Abilify] 5 mg Tablet
5 mg PO DAILY
lisinopril 5 mg Tablet
10 mg PO DAILY 30 Days Qty: 30 1RF
acetaminophen
650 mg PO Q6H PRN (Reason: fever or pain)
bisacodyl
1 supp TN Q4H PRN (Reason: constipation)
senna
8.6 mg PO HS
Referrals:
Fransisco Mahan, [Family Provider, Internal Medicine]
Activity Restrictions/Additional Instructions:
Thank You for choosing [facility].
It was a pleasure meeting you and taking part in your care. We hope for your continued healing and wellness.
Please read discharge instructions in their entirety. However, they are for general education and may not describe your exact diagnosis at discharge. Information on your ER visit and medical conditions were discussed with you along with appropriate
follow up information...
If indicated, please take your medications as instructed and indicated on discharge paperwork.
Please schedule a follow up appointment as directed. Call to schedule an appointment
Please return to the emergency department with ANY change in, persisting, or worsening of symptoms. If any of your symptoms do not improve, or persist, or become more severe within 6-12 hours, please return to the emergency department for further
care.
Please return to the emergency department if you develop a headache, neck pain/stiffness, fever greater than 100.4F, chest pain, shortness of breath, persistent nausea, vomiting, slurred speech, difficulty walking, numbness/tingling, weakness, signs
of infection or any other symptoms that are worrisome to you.
If you have any questions or concerns please do not hesitate to call the Hospital at or E-mail me directly at [email or web address]
Interventions
Interventions:
*Risk Screen - Suicide Last Done: 04/15/25 03:53
*General Assessment Last Done: 04/15/25 03:53
*ED- Fall Risk Assessment Last Done: 04/15/25 03:33
*ED COVID-19 Vaccine History Last Done: 04/15/25 03:33
ED- Cardiac Assessment Last Done: 04/15/25 03:53
ED- Pulmonary Assessment Last Done: 04/15/25 03:53
Discharge Date and Time
Print Language: SLOVENIAN
== END 2025-04-15 10:12 ==
LOC: EMR 03:18
PROVIDERS: EMERGENCY PHYSICIAN Student in an Organized Health Care Education/Training Program; FAMILY PHYSICIAN Internal Medicine
DX: R06.03 Acute respiratory distress (principal); R25.1 Tremor, unspecified; I10 Essential (primary) hypertension; E78.00 Pure hypercholesterolemia, unspecified; F31.9 Bipolar disorder, unspecified; Z86.73 Personal history of transient ischemic attack (TIA), and cerebral infarction without residual deficits; Z96.652 Presence of left artificial knee joint; Z98.1 Arthrodesis status
CPT/HCPCS: 99283; 71046; 80053; 83880; 84484; 85025; 93005